=== PATIENT | male | born 1945 | race Caucasian/White ===

== ENCOUNTER 2023-12-13 06:34 | Inpatient (IN) | payer OTHER, SELFPAY ==
[2023-12-13] VITALS (18 sets, daily range): BP systolic 133–171; BP diastolic 75–101; PULSE 64–107; BMI 17.9; BMI 17.2
[2023-12-13 02:41] LABS: % Basophils 0.2 % (0-2); % Eosinophils 1.8 % (0-6); % Immature Granulocytes 0.6 % (0-0.5); % Lymphocytes 5.8 % (20.5-51.1); % Monocytes 3.3 % (1.7-9.3); % Neutrophils 88.3 % (42.2-75.2); Absolute Basophils 0.1 10^3/uL (0-0.2); Absolute Eosinophils 0.4 10^3/uL (0-0.7); Absolute Immature Granulocytes 0.1 10^3/uL (0-0.05); Absolute Lymphocytes 1.2 10^3/uL (1.2-3.4); Absolute Monocytes 0.7 10^3/uL (0.1-0.6); Absolute Neutrophils 18.5 10^3/uL (1.4-6.5); Hematocrit 33.4 % (39.0-52.0); Hemoglobin 11.5 g/dL (13.0-18.0); Mean Corp Hgb Conc. 34.4 g/dL (33.0-37.0); Mean Corpuscular Hgb 29.6 pg (27.0-31.0); Mean Corpuscular Volume 86.1 fL (80.0-94.0); Mean Platelet Volume 9.7 fL (7.4-10.4); Nucleated Red Blood Cells % 0 % (-); Platelet Count 295 10^3/uL (130-400); Red Blood Cell Count 3.88 10^6/uL (4.70-6.10); Red Cell Dist. Width 13.4 % (11.5-14.5); White Blood Cell Count 20.9 10^3/uL (4.8-10.8)
[2023-12-13 03:01] LABS: INR 1.12; PT 14.2 Sec (11.4-14.6)
--- NOTE | 2023-12-13 03:01 | ED.GENMED ---
History of Present Illness
General
Chief Complaint: Rectal Bleeding
Source: patient and spouse
Time Seen by Provider: 12/13/23 02:54
Travel History
Have you had any contact with someone who has COVID-19?: No
Do you have any symptoms of coronavirus? Fever > 100 degrees, chills, cough, shortness of breath, sore throat, loss of taste or smell, muscle aches, or headache?: No
History of Present Illness
History of Present Illness:
78-year-old male presents to the emergency room complaining of rectal bleeding. Patient states he was awoken from sleep with the urge to go the bathroom. He had some abdominal cramping. He passed a large amount of maroon stool. He has had a
total of 5 episodes such as this prompting his decision to come to the emergency room. He did feel a bit lightheaded. Patient takes a baby aspirin a couple times a week. He denies any other anticoagulants. Patient has had colonoscopies in the
past last one being about 10 years ago. He was told he had diverticulosis in the past.
Past History
Past History
ED Past Medical History: HTN, Hypothyroidism and Other (kidney stones)
ED Past Surgical History: None
Social History
Tobacco: Non-smoker
Personal:
Living: with family
Employment: Employed
Phy Exam
Physical Exam
Physical Exam:
General: Awake, Alert, Oriented X3. No acute distress.
Vitals: unremarkable
Head: Atraumatic
Eyes: Pupils equal, EOMI
Throat: Airway intact, no exudates
Neck: Trachea midline
Lungs: Clear and equal b/l
Heart: Regular rate, no murmurs
Abd: Soft, Nontender, No pulsatile mass
Rectal:
Neuro: Nonfocal
Skin: Warm, dry, no rash
Extremities: pulses equal b/l, no edema
Course
Orders/Labs/Results
Orders:
Orders
12/13/23 02:23
Cardiac Monitoring- Treatment ONCE
12/13/23 02:25
Complete Blood Count/With Diff Urgent
Comprehensive Metabolic Panel Urgent
PTT Urgent
Prothrombin Time Urgent
12/13/23 03:06
Type+Screen Urgent
12/13/23 03:16
CT Abd/pelvis W Iv Cont Urgent
Comment:
Reason For Exam: abd pain, gi bleeding
12/13/23 03:34
Diphenhydramine [Benadryl] 50 mg IV NOW STA
Hydrocortisone Sod Succinate [Solu-Cortef] 200 mg IV NOW STA
12/13/23 04:06
Code Status As Directed
Resuscitation Status: Full Code
Activity As Directed
Activity Level: With Assistance
Intake/ Output As Directed
Frequency: Per unit guidelines
Orthostatic Vital Signs As Directed
Orthostatic VS Frequency: Now
Comment: then every four hours for twenty-four hours
Pneumatic Compression Sleeves As Directed
Type: Knee high
Vital Signs As Directed
Frequency: Per unit guidelines
DX Deep Vein Thrombosis Video Routine
12/13/23 04:07
Consult Notification Routine
Specialty to Notify: Gastroenterology
GASTROINTESTINAL CONSULT Routine
Consulting Provider: Ann-Marie Grissom
Was physician already notified: No
Reason for consult: Acute colicky maroon stool hematochezia
12/13/23 04:15
0.9% Sodium Chloride 1000 ml [Nss] 1,000 ml IV 60 mls/hr
12/13/23 04:44
H&H Q6H
12/13/23 Breakfast
NPO
Allow oral meds: Yes
Allow clear liquids: Sips of Clears
NPO with Ice Chips: Yes
12/13/23 06:11
Basic Metabolic Panel IN AM
12/13/23 06:22
Admit/Transfer Patient As Directed
Co-Sign Provider:
Level of Care: Inpatient admission
Assign to:: Telemetry
Physician / Group: [email or web address]
Diagnosis: acute rectl bleed
Reason for Telemetry: Other
Other Reason for Telemetry: GIB
Date to Stop Telemetry: 12/15/23
Time to Stop Telemetry: 11:00
Reason for Hospitalization: acute rectal bleed
Expected length of stay greater than two midnights?: Yes
ELOS- Estimated Length of Stay in days: 3
I certify the patient meets the requirements for IP care: Yes
12/13/23 08:00
0.9% Sodium Chloride [Nss (Preservative Free)] 10 ml IV DAILY
Pantoprazole [Protonix IV] 40 mg IV DAILY
12/13/23 10:15
H&H Q6H
12/13/23 16:15
H&H Q6H
12/13/23 22:15
H&H Q6H
12/15/23 11:00
DC Protocol for Telemetry ONCE
Abnormal Lab Results
12/13/23 12/13/23
02:25 04:44
WBC 20.9 H 10^3/uL
(4.8-10.8)
RBC 3.88 L 10^6/uL
(4.70-6.10)
Hgb 11.5 L g/dL 12.1 L g/dL
(13.0-18.0) (13.0-18.0)
Hct 33.4 L % 35.3 L %
(39.0-52.0) (39.0-52.0)
Abs Immat Gran (auto) 0.1 H 10^3/uL
(0-0.05)
Absolute Neuts (auto) 18.5 H 10^3/uL
(1.4-6.5)
Absolute Monos (auto) 0.7 H 10^3/uL
(0.1-0.6)
Immature Gran % 0.6 H %
(0-0.5)
Neutrophils % 88.3 H %
(42.2-75.2)
Lymphocytes % 5.8 L %
(20.5-51.1)
BUN 23 H mg/dl
(9-20)
Glucose 161 H mg/dl
(70-99)
Total Protein 5.8 L g/dl
(6.3-8.2)
Albumin 2.9 L g/dl
(3.5-5.0)
Vital Signs
Initial and Last Documented VS:
Initial Vital Signs
Temp Pulse Resp BP Pulse Ox
97.6 F 82 20 160/99 98
12/13/23 01:33 12/13/23 01:33 12/13/23 01:33 12/13/23 01:33 12/13/23 01:33
Last Documented Vital Signs
Temp Pulse Resp BP Pulse Ox
97.6 F 75 20 144/89 95
12/13/23 01:33 12/13/23 05:45 12/13/23 05:45 12/13/23 05:00 12/13/23 05:45
MDM/Problems Addressed
Differential Diagnosis Includes:
Diverticular bleeding, hemorrhoidal bleeding, ischemic bowel
MDM/Problems Addressed:
Patient presents with several episodes of bright red blood per rectum. He does have some abdominal pain but does not appear to be as significant as I would expect for ischemic colitis. Patient's white count is elevated. He is hemodynamically
stable. Patient did not pass any bloody stool after arrival. But given his elevated white blood cell count I thought CT should be performed. Patient will be admitted to the hospital service for close monitoring of vital signs and hemoglobin.
Chronic conditions affecting care: HTN
*Pulse Oximetry
Patient hypoxic: no
*Critical Care Note
Total Time (30-74mins, 75-104mins- exclusive of procedures): Not Applicable
Patient Management
Escalation/DeEscalation of care consider admission/obs:
Given the potential significantly from a diverticular bleed patient will require hospitalization
ED Attending Note
-
Portions of this chart may have been created with voice recognition software.� Occasional wrong word or��sound alike� substitutions may have occurred due to the inherent limitations of voice recognition software.
Discharge Plan
Departure
Patient Disposition: Admit
Date of Disposition: 12/13/23
Time of Disposition: 03:21
Admit to: IMU
Presentation/result/management discussed w/ accepting MD/DO: Hospitalist
Condition: Fair
Discharge Problem:
Acute lower GI bleeding
Prescriptions:
No Action
lisinopril 10 MG tablet
10 mg PO DAILY
aspirin 81 MG tablet,delayed release (DR/EC)
81 mg PO MOFR
Fiber Plus
1 cap PO DAILY
Patient Comments:
OTC
zinc 50 MG tablet
50 mg PO DAILY
cholecalciferol (vitamin D3) 2,000 UNITS tablet
2,000 units PO DAILY
docosahexaenoic acid-vit C-lut 1 EACH capsule
1 ea PO MOFR
acetaminophen 325 MG tablet
650 mg PO Q4HPRN PRN (Reason: mild pain) Qty: 30 0RF
ibuprofen 200 MG tablet
400 - 600 mg PO Q6HPRN PRN (Reason: moderate pain) Qty: 30 0RF
Referrals:
Kayode Jean MD [Family Provider] -
Interventions
Interventions:
*Risk Screen - Suicide Last Done: 12/13/23 01:33
*General Assessment Last Done: 12/13/23 01:33
*Neglect/Abuse Screening Last Done: 12/13/23 01:33
ED- Fall Risk Assessment Last Done: 12/13/23 01:33
*ED COVID-19 Vaccine History Last Done: 12/13/23 01:33
WG-Fruffm-Xfyiytdcii Assessment Last Done: 12/13/23 03:52
ED- Cardiac Assessment Last Done: 12/13/23 03:52
ED- Pulmonary Assessment Last Done: 12/13/23 03:52
[2023-12-13 03:02] LABS: APTT 34.1 Sec (23.4-35.0)
[2023-12-13 03:14] LABS: ALT (SGPT) 12 U/L (0-50); AST (SGOT) 18 U/L (17-59); Albumin 2.9 g/dl (3.5-5.0); Alkaline Phosphatase 75 U/L (38-126); Blood Urea Nitrogen 23 mg/dl (9-20); Calcium 8.8 mg/dl (8.4-10.2); Carbon Dioxide 26 mmol/L (22-30); Chloride 105 mmol/L (98-107); Glucose 161 mg/dl (70-99); Sodium 140 mmol/L (135-145); Total Bilirubin 0.5 mg/dl (0.2-1.3); Total Protein 5.8 g/dl (6.3-8.2); eGFR > 60.00
[2023-12-13] MEDS: BENADRYL 50 MG IV (03:58)
[2023-12-13] MEDS: SOLU-CORTEF 200 MG IV (03:59)
--- NOTE | 2023-12-13 04:02 | HPS.HSE ---
Family Physician
-
Family Physician: Kayode Jean
Chief Complaint
-
Rectal bleed
History of Present Illness
78M HX Diverticulosis, HTN , hypothyroid pw acute rectal bleeding associated with colicky abdominal pain
Reports passage of large amount of maroon stool total of 5 episodes. On babay ASA.
POS lightheaded.
Not on anticoagulants.
Last colonoscopies about 10 years ago
Medical History
Past Medical History
Past Medical History: Reports HTN, Hypothyroidism and Other (diverticulosis )
Past Surgical History: Reports None
Social History
Tobacco: Non-smoker
Alcohol: None
Family History
Family History: Not pertinent
Allergies / Home Medications
Allergies reflects when Allergies were last updated in [employer].
Home Medications with original date entered in [employer]
Allergy/Medication List:
Allergies
Allergy/AdvReac Type Severity Reaction Status Date / Time
iodine Allergy Shortness Verified 12/13/23 01:33
of Breath
Sulfa (Sulfonamide Allergy Rash Verified 12/13/23 01:33
Antibiotics)
sulfamethoxazole Allergy Rash Verified 12/13/23 01:33
trimethoprim Allergy Rash Verified 12/13/23 01:33
IVP Dye Allergy Fainted Uncoded 12/13/23 01:33
Home Medications
lisinopril 10 mg tablet 10 mg PO DAILY 06/30/12
Fiber Plus 1 cap PO DAILY 05/02/14
aspirin 81 mg tablet,delayed release 81 mg PO MOFR 05/02/14
cholecalciferol (vitamin D3) 50 mcg (2,000 unit) tablet 2,000 units PO DAILY 12/18/20
docosahexaenoic acid-vitamin C-lutein 180 mg-15 mg-5 mg capsule 1 ea PO MOFR 12/18/20
zinc 50 mg tablet 50 mg PO DAILY 12/18/20
acetaminophen 325 mg tablet 650 mg PO Q4HPRN PRN mild pain #30 tabs 12/20/20
ibuprofen 200 mg tablet 400 - 600 mg PO Q6HPRN PRN moderate pain #30 tabs 12/20/20
Review of Systems
-
Constitutional: Reports No Symptoms
EENT: Reports No Symptoms
Respiratory: Reports No Symptoms
Cardiac: Reports No Symptoms
Abdomen/GI: Reports See HPI
: Reports No Symptoms
Musculoskeletal: Reports No Symptoms
Skin: Reports No Symptoms
Neurological: Reports No Symptoms
Endocrine: Reports No Symptoms
Hematologic/Lymphatic: Reports No Symptoms
Psych: Reports No Symptoms
Physical Exam
Vital Signs
Vital Signs
Temp Pulse Resp BP Pulse Ox
97.6 F 82 20 171/81 98
12/13/23 01:33 12/13/23 01:33 12/13/23 01:33 12/13/23 01:43 12/13/23 03:52
Physical Exam
General: Other (see below )
Laboratory Results
-
12/13/23 02:25
12/13/23 02:25
Laboratory Results
PT 14.2 Sec (11.4-14.6) 12/13/23 02:25
INR 1.12 12/13/23 02:25
APTT 34.1 Sec (23.4-35.0) 12/13/23 02:25
Total Bilirubin 0.5 mg/dl (0.2-1.3) 12/13/23 02:25
AST 18 U/L (17-59) 12/13/23 02:25
ALT 12 U/L (0-50) 12/13/23 02:25
Alkaline Phosphatase 75 U/L (38-126) 12/13/23 02:25
Data Reviewed
-
Diagnostic Radiology: Other
CT Scan: Other (pending )
Lab Data: Labs Reviewed by me
Impression/Plan
-
Reviewed VS: BP 170/80 HR 80
PE
Gen: No acute distress.
HEENT: unremarkable exam , anicteric , no pallor
Neck: supple , no JVD
Lungs: CTA
Cor: RRR S1 S2
Abdomen: oft, Nontender, No pulsatile mass
CLAY MINE CUTTING MACHINE OPERATOR: AAO3
MS: no edema
Psych: appropriate
Data
WCC 20.9
Hgb 11.5
INR 1.12
BUN 20
nl Cr
BG [address] AP w IV contrast
ASSESSMENT & PLAN
Acute colicky BRBPR LGIB Diff origin; Ischemic, Diverticular origin
- T & S
- Blood consented and sxcaneed at ER
- NPO and IVF
- H & H
- Pending CT AP w IV contrast
- Held ASA and NSAIDs
- GI consult
Essential HTN
- Held Lisinopril
DVT Px: SCD
Code: Full
IP TLM
[2023-12-13] MEDS: NSS 1000 IV ×2 (04:43→20:53)
[2023-12-13 04:54] LABS: Hematocrit 35.3 % (39.0-52.0); Hemoglobin 12.1 g/dL (13.0-18.0)
[2023-12-13 06:42] LABS: Blood Urea Nitrogen 22 mg/dl (9-20); Calcium 8.9 mg/dl (8.4-10.2); Carbon Dioxide 27 mmol/L (22-30); Chloride 106 mmol/L (98-107); Estimated Creatinine Clearance 65 ml/min; Glucose 118 mg/dl (70-99); Potassium 4.8 mmol/L (3.5-5.1); Sodium 140 mmol/L (135-145); eGFR > 60.00
--- NOTE | 2023-12-13 08:04 | W.PN.HOSP.TC ---
Today's Communication/Plan
-
Keep NPO until seen by GI.
Assessment / Plan
Assessment / Plan
78 year old man wih a HX of Diverticulosis, HTN , hypothyroid presents with acute� rectal bleeding associated with colicky abdominal pain.
On ASA, not on antioagulants.
1. Acute colicky BRBPR, LGIB� likely origin; H/H >09/08, Vitals stable.
- Blood consented and sxcaneed at ER
- Continue NPO and IVF until plan by GI
- H & H Q6
- Reiew results of Pending CT AP w IV contrast when available
- Hold ASA� and NSAIDs
- GI consult pending
2. Essential HTN, chronic
- Hold po Lisinopril for now
- Resume po bp control when taking PO again
- Hydralazine PRN if SBP > 180�
VCD for DVT
Full Code
Anticipated Discharge: 24 - 48 hours
Subjective/Interval History
-
Date of Service: December 13, 2023
Feels better. No abd pain, no further episodes of bleeding.
Objective Data
-
Labs:
Laboratory Results
12/13/23 12/13/23 12/13/23
02:25 04:44 06:11
WBC 20.9 H
Hgb 11.5 L 12.1 L
Hct 33.4 L 35.3 L
Plt Count 295
PT 14.2
INR 1.12
APTT 34.1
Sodium 140 140
Potassium 4.0 4.8
Chloride 105 106
Carbon Dioxide 26 27
BUN 23 H 22 H
Creatinine 0.9 0.7
Glucose 161 H 118 H
Calcium 8.8 8.9
Total Bilirubin 0.5
AST 18
ALT 12
Alkaline Phosphatase 75
12/13/23 12/13/23 12/13/23
10:15 16:15 22:15
WBC
Hgb Pending Pending Pending
Hct Pending Pending Pending
Plt Count
PT
INR
APTT
Sodium
Potassium
Chloride
Carbon Dioxide
BUN
Creatinine
Glucose
Calcium
Total Bilirubin
AST
ALT
Alkaline Phosphatase
Vital Signs:
Vital Signs
Temp Pulse Resp BP Pulse Ox
97.6 F 72 18 159/81 95
12/13/23 01:33 12/13/23 07:15 12/13/23 07:15 12/13/23 07:00 12/13/23 07:15
Review of Systems
-
History Source: Patient
All other systems: Reviewed and negative
Physical Exam
-
General: Well Developed, Well Nourished, No Apparent Distress, Comfortable and Conversant
HEENT: Normocephalic, Atraumatic, PERRLA, Nose Appears Normal and Ears Appear Normal
Respiratory: Clear to Auscultation
Cardiac: Regular Rhythm and S1/S2
GI: Soft, Nontender and Nondistended
Skin: Warm and Dry; Negative Rash or Ulcers
Neuro: Awake, Alert, Oriented and AO x 3
Psych: Calm
Data Reviewed
-
Labs: Labs Reviewed by me
--- NOTE | 2023-12-13 08:06 | CON.GI ---
Addendum entered and electronically signed by Ann-Marie Grissom MD 12/13/23 10:48:
I saw and examined the patient.
The MONOGRAM MACHINE OPERATOR's note was reviewed and I agree with the note.
Comment: This is a 78-year-old male who presented with symptoms of multiple episodes of diarrhea with rectal bleeding since yesterday associated with lower abdominal pain. Hemodynamically stable CT shows diverticulosis no evidence of diverticulitis
or colitis and hemoglobin 11.5. He has not had any further episodes since last night and abdominal pain also seems to have improved. Most likely etiology is infectious colitis versus ischemic colitis or diverticular bleed. He did have an elevated
white count on admission but will hold off on antibiotics for now since symptoms are improving, will start him on clear liquids.
Original Note:
Consultation
-
Date/Time Consultation Requested: 12/13/23406
Date/Time Consultation Performed: 12/13/23824
Requesting Provider: Jose Snider MD
Performing Provider: Dr. Grissom / Isabella Farris PA-C
Reason for Consultation: rectal bleeding
Medical History
Chief Complaint / HPI
Chief Complaint: rectal bleeding
History of Present Illness:
This is an 78 year old male with a past medical history of HTN, hypothyroidism who presents for rectal bleeding which started yesterday with associated cramping lower abdominal pain. He states he had diarrhea, described as 'loose' bowel movements
with maroon colored blood. He had approximately 5-6 episodes of rectal bleeding; last one around midnight. No further bleeding or BM since coming to the ER. No associated fever, chills, nausea or vomiting. He denies any sick contacts. No new foods
or possibly spoiled foods. He did eat pork chops yesterday. He takes a baby aspirin daily and admits to occasional NSAID use. No prior history of rectal bleeding. His last colonoscopy was in 2011 and showed diverticulosis, internal and external
hemorrhoids, as well as a 5mm hyperplastic sigmoid polyp. Initial labs in the ER show stable Hgb of 11.5 and leukocytosis (WBC 20.9). CT abd/pelvis shows extensive diverticulosis, most prominent in the sigmoid colon. No family history of IBD or
colon cancer. Pain resolved now.
Past Medical History
Past Medical History: HTN and Hypothyroidism
Past Surgical History: None
Social History
Tobacco: Non-Smoker
Alcohol: Occasional (3 beers/week)
Drug: None
Personal:
Living: With Family
Family History
Family History: Other (no family history of GI malignancies or inflammatory bowel disease)
Allergies / Home Medications
Allergy/AdvReac Type Severity Reaction Status Date / Time
iodine Allergy Shortness Verified 12/13/23 01:33
of Breath
Sulfa (Sulfonamide Allergy Rash Verified 12/13/23 01:33
Antibiotics)
sulfamethoxazole Allergy Rash Verified 12/13/23 01:33
trimethoprim Allergy Rash Verified 12/13/23 01:33
IVP Dye Allergy Fainted Uncoded 12/13/23 01:33
Medication Instructions Recorded
lisinopril 10 mg tablet 10 mg PO DAILY 06/30/12
Fiber Plus 1 cap PO DAILY 05/02/14
aspirin 81 mg tablet,delayed 81 mg PO MOFR 05/02/14
release
cholecalciferol (vitamin D3) 50 2,000 units PO DAILY 12/18/20
mcg (2,000 unit) tablet
docosahexaenoic acid-vitamin 1 ea PO MOFR 12/18/20
C-lutein 180 mg-15 mg-5 mg capsule
zinc 50 mg tablet 50 mg PO DAILY 12/18/20
acetaminophen 325 mg tablet 650 mg PO Q4HPRN PRN mild pain #30 12/20/20
tabs
ibuprofen 200 mg tablet 400 - 600 mg PO Q6HPRN PRN 12/20/20
moderate pain #30 tabs
Review of Systems
-
History Source: Patient
All other systems: A 12 pt ROS was Negative except as stated above in HPI
Vital Signs
Temp Pulse Resp BP Pulse Ox
97.6 F 72 18 159/81 95
12/13/23 01:33 12/13/23 07:15 12/13/23 07:15 12/13/23 07:00 12/13/23 07:15
Physical Exam
Exam
General: Well Developed, Well Nourished and No Apparent Distress
Respiratory: Clear
Cardiac: Regular Rhythm
GI: Soft, Non Tender, Non Distended and Normal Bowel Sounds
Rectal: Other (no external hemorrhoids, no palpable masses or tenderness on VISHNU, scant amount of BROWN stool, heme POSITIVE)
Skin: Warm
Neuro: AO x 3
Psych: Calm
Results
WBC 20.9 10^3/uL (4.8-10.8) H 12/13/23 02:25
Hgb 12.1 g/dL (13.0-18.0) L 12/13/23 04:44
Hct 35.3 % (39.0-52.0) L 12/13/23 04:44
MCV 86.1 fL (80.0-94.0) 12/13/23 02:25
Plt Count 295 10^3/uL (130-400) 12/13/23 02:25
Absolute Neuts (auto) 18.5 10^3/uL (1.4-6.5) H 12/13/23 02:25
PT 14.2 Sec (11.4-14.6) 12/13/23 02:25
INR 1.12 12/13/23 02:25
APTT 34.1 Sec (23.4-35.0) 12/13/23 02:25
Sodium 140 mmol/L (135-145) 12/13/23 06:11
Potassium 4.8 mmol/L (3.5-5.1) 12/13/23 06:11
Chloride 106 mmol/L (98-107) 12/13/23 06:11
Carbon Dioxide 27 mmol/L (22-30) 12/13/23 06:11
BUN 22 mg/dl (9-20) H 12/13/23 06:11
Creatinine 0.7 mg/dL (0.7-1.3) 12/13/23 06:11
Calcium 8.9 mg/dl (8.4-10.2) 12/13/23 06:11
Total Bilirubin 0.5 mg/dl (0.2-1.3) 12/13/23 02:25
AST 18 U/L (17-59) 12/13/23 02:25
ALT 12 U/L (0-50) 12/13/23 02:25
Alkaline Phosphatase 75 U/L (38-126) 12/13/23 02:25
Diagnostic Image Results:
CT Abdomen/Pelvis w IV contrast:
Extensive colonic diverticulosis, most prominent sigmoid. No intestinal obstruction or free air.
Evaluation for active colonic bleeding markedly limited without angiographic technique.
Bilateral simple renal cysts. No evidence of obstructive uropathy bilaterally.
Enlarged prostate.
Prior GI Procedures:
EGD:
Colonoscopy:
01/15/2012, Dr. Carreon:
Impression:� � � � � - Non-thrombosed external hemorrhoids.
�� � � � � � � � � � - One 5 mm polyp in the sigmoid colon. Resected and
�� � � � � � � � � � retrieved.
�� � � � � � � � � � - Diverticulosis in the sigmoid colon, in the descending
�� � � � � � � � � � colon, in the transverse colon and in the ascending
�� � � � � � � � � � colon.
�� � � � � � � � � � - Internal hemorrhoids.
Assessment / Plan
-
78 year old male with HTN, hypothyroidism who presents for 5-6 episodes of rectal bleeding with cramping lower abdominal pain and diarrhea, since yesteday. No fever, chills, nausea or vomiting. No sick contacts. No new foods or possibly spoiled
foods. He did eat pork chops yesterday. He takes a baby aspirin daily and admits to occasional NSAID use. No prior history of rectal bleeding. Colonoscopy in 2011 showed diverticulosis, internal and external hemorrhoids, and small hyperplastic
polyp. ER labs: Hgb 11.5 and leukocytosis (WBC 20.9). CT abd/pelvis shows extensive diverticulosis, most prominent in the sigmoid colon. No family history of IBD or colon cancer. Pain has now resolved with no further bleeding or BM since coming to
the hospital.
IMPRESSION / PLAN:
Rectal Bleeding, etiology unknown - possibilities include diverticular bleed, AVM, infectious or ischemic colitis
-5-6 episodes of rectal bleeding (maroon-colored, loose stools); no active bleeding now
-Hgb 11.5 initially in ER, now 12.1
-continue to trend Hgb to ensure stability
-CT without evidence of colitis/diverticulitis but limited due to lack of oral contrast
-monitor for recurrence of bleeding
-if diarrhea recurs, stool studies
-hold NSAIDs
We will follow.
-
-
Thank you for consultation and allowing me to participate in the patient's care. Please call the [facility] physician during the after hours with any questions or concerns.
[2023-12-13] MEDS: NSS (PRESERVATIVE FREE) 10 ML IV (08:26)
[2023-12-13] MEDS: PROTONIX IV 40 MG IV (08:26)
--- NOTE | 2023-12-13 08:51 | CM ---
MEt with patient in ER. He is being admitted to . Aly has a rectal bleed. He lives with in 2 level home. From lower level up 12 steps to living areas, 12 more steps to bedroom and full bathroom. HE does not own any DME.
PCP Dr. Kayode Baez
Pharmacy: [facility]
Plan;home when stable.
--- NOTE | 2023-12-13 10:00 | PTCARENOTE ---
Received pt from ED. Pt ambulated from stretcher into room with assistance, no c/o pain or lightheadedness. Pt VSS 99% on RA. At rest pt sinus daniella 40s-50s with ambulation Pt ST with BBBc and frequent PVCs, however alarming as MD Nya showed
rhythm strips, Continue to monitor on tele. Pt oriented to room, call ackerman within reach, instructed to ring for assistance, verbalized understanding, plan of care ongoing.
[2023-12-13 10:23] LABS: Hematocrit 31.7 % (39.0-52.0); Hemoglobin 11.2 g/dL (13.0-18.0)
[2023-12-13 16:37] LABS: Hematocrit 28.6 % (39.0-52.0); Hemoglobin 10.4 g/dL (13.0-18.0)
[2023-12-13 23:25] LABS: Hematocrit 26.8 % (39.0-52.0); Hemoglobin 9.3 g/dL (13.0-18.0)
[2023-12-14 03:29] VITALS: BP 141/89; BP 143/69; BP 144/89; PULSE 60; PULSE 81; PULSE 89
[2023-12-14 07:28] LABS: Hematocrit 29.2 % (39.0-52.0); Hemoglobin 9.8 g/dL (13.0-18.0); Mean Corp Hgb Conc. 33.6 g/dL (33.0-37.0); Mean Corpuscular Hgb 29.3 pg (27.0-31.0); Mean Corpuscular Volume 87.4 fL (80.0-94.0); Mean Platelet Volume 10.1 fL (7.4-10.4); Platelet Count 255 10^3/uL (130-400); Red Blood Cell Count 3.34 10^6/uL (4.70-6.10); Red Cell Dist. Width 13.3 % (11.5-14.5); White Blood Cell Count 9.5 10^3/uL (4.8-10.8)
[2023-12-14] MEDS: PROTONIX IV 40 MG IV (07:47)
[2023-12-14] MEDS: NSS (PRESERVATIVE FREE) 10 ML IV (07:47)
[2023-12-14 07:50] VITALS: BP 152/80
[2023-12-14 08:08] LABS: Blood Urea Nitrogen 18 mg/dl (9-20); Calcium 8.5 mg/dl (8.4-10.2); Carbon Dioxide 25 mmol/L (22-30); Chloride 107 mmol/L (98-107); Estimated Creatinine Clearance 63 ml/min; Glucose 96 mg/dl (70-99); Potassium 4.2 mmol/L (3.5-5.1); Sodium 138 mmol/L (135-145); eGFR > 60.00
--- NOTE | 2023-12-14 08:49 | W.PN.GI.CBS2 ---
Today's Communication / Plan
-
monitor Hb
LRD
Assessment / Plan
-
78 year old male with HTN, hypothyroidism who presents for 5-6 episodes of rectal bleeding with cramping lower abdominal pain and diarrhea, since yesteday. No fever, chills, nausea or vomiting. No sick contacts. No new foods or possibly spoiled
foods. He did eat pork chops yesterday. He takes a baby aspirin daily and admits to occasional NSAID use. No prior history of rectal bleeding. Colonoscopy in 2012 showed diverticulosis, internal and external hemorrhoids, and small hyperplastic
polyp. ER labs: Hgb 11.5 and leukocytosis (WBC 20.9). CT abd/pelvis shows extensive diverticulosis, most prominent in the sigmoid colon. No family history of IBD or colon cancer. Pain has now resolved with no further bleeding or BM since coming to
the hospital.
IMPRESSION / PLAN:
This is a 78-year-old male who presented with symptoms of multiple episodes of diarrhea with rectal bleeding associated with lower abdominal pain.� Hemodynamically stable CT shows diverticulosis no evidence of diverticulitis or colitis and
hemoglobin dropped from 11.5 tp 9.8 but no further bleeding.�Most likely etiology diverticular bleed.� He did have an elevated white count on admission now resolved (20.9 to 9.5) will hold off on antibiotics for now since symptoms are improving,
will adv diet for lunch to LRD and if no further bleeding OK to DC
-monitor for recurrence of bleeding
-if diarrhea recurs, stool studies
-hold NSAIDs
Subjective
Subjective
Date of Service: December 14, 2023
No further bleeding hemoglobin did drop from 11.5 on admission to 9.8. He also has no abdominal pain currently, no nausea or vomiting, CT was negative for colitis or diverticulitis
Objective
Data Reviewed
Laboratory Data:
Laboratory Results
12/14/23 07:12
12/14/23 07:12
Laboratory Results
PT 14.2 Sec (11.4-14.6) 12/13/23 02:25
INR 1.12 12/13/23 02:25
APTT 34.1 Sec (23.4-35.0) 12/13/23 02:25
Magnesium 2.0 mg/dl (1.6-2.3) 12/14/23 07:12
Total Bilirubin 0.5 mg/dl (0.2-1.3) 12/13/23 02:25
AST 18 U/L (17-59) 12/13/23 02:25
ALT 12 U/L (0-50) 12/13/23 02:25
Alkaline Phosphatase 75 U/L (38-126) 12/13/23 02:25
Vital Signs and I&O:
Vital Signs
Temp Pulse Resp BP Pulse Ox
98.2 F 56 18 152/80 98
12/14/23 07:50 12/14/23 07:50 12/14/23 07:50 12/14/23 07:50 12/14/23 07:50
I&O
12/13/23 12/14/23 12/15/23
06:59 06:59 06:59
Intake Total 1879
Balance 1879
12/13/23 PROCEDURES: CT Abd/pelvis W Iv Cont IMPRESSION:
Extensive colonic diverticulosis, most prominent sigmoid. No intestinal obstruction or free air.
Evaluation for active colonic bleeding markedly limited without angiographic technique.
Bilateral simple renal cysts. No evidence of obstructive uropathy bilaterally.
Enlarged prostate.
Physical Exam
Physical Exam
Cardiology: Normal Sinus Rhythm
Pulmonary: Clear
GI: Soft, Non Distended, Non Tender and Normal Bowel Sounds
--- NOTE | 2023-12-14 09:13 | W.PN.HOSP.TC ---
Today's Communication/Plan
-
see bold
Assessment / Plan
Assessment / Plan
78 year old man wih a HX of Diverticulosis, HTN , hypothyroid presents with acute� rectal bleeding associated with colicky abdominal pain.
On ASA, not on antioagulants.
Gen: NAD, AAOx3.
Eyes: EOMI, PERRLA, no scleral icterus.
Neck: supple.
CV: RRR, +S1/S2, no m/r/g.
Resp: CTAB, no rales, wheezes, or rhonchi.
Abd: +BS, soft, NT, ND
Skin: No rashes.
Neuro: CN 2-12 intact, non-focal.
Psych: Normal mood and affect.
CT A/P: Extensive colonic diverticulosis, most prominent sigmoid. No intestinal obstruction or free air. Evaluation for active colonic bleeding markedly limited without angiographic technique. Bilateral simple renal cysts. No evidence of obstructive
uropathy bilaterally. Enlarged prostate.
Acute blood loss anemia/BRBPR/LGIB due to acute diverticular bleed:
-cont to trend Hb, currently stable
-advanced to LR diet
-GI following
Essential HTN: restart home lisinopril
NSVT, 11 beats:
-Echo
-likely cardiology c/s tomorrow
FULL/SCDs
Anticipated Discharge: Within 24 hours
Subjective/Interval History
-
Date of Service: December 14, 2023
No further hematochezia or abdominal pain
Objective Data
-
Labs:
Laboratory Results
12/13/23 12/14/23
23:03 07:12
WBC 9.5
Hgb 9.3 L 9.8 L
Hct 26.8 L 29.2 L
Plt Count 255
Sodium 138
Potassium 4.2
Chloride 107
Carbon Dioxide 25
BUN 18
Creatinine 0.7
Glucose 96
Calcium 8.5
Vital Signs:
Vital Signs
Temp Pulse Resp BP Pulse Ox
98.2 F 56 18 152/80 98
12/14/23 07:50 12/14/23 07:50 12/14/23 07:50 12/14/23 07:50 12/14/23 07:50
I&O
12/13/23 12/14/23 12/15/23
06:59 06:59 06:59
Intake Total 1879
Balance 1879
[2023-12-14] MEDS: ZESTRIL 10 MG PO (10:04)
[2023-12-14 11:51] VITALS: BP 151/79
[2023-12-14] MEDS: NSS 1000 IV (12:40)
[2023-12-14 15:47] VITALS: BP 164/80; BP 165/79; BP 181/96; PULSE 60; PULSE 65; PULSE 66
--- NOTE | 2023-12-14 16:36 | PTCARENOTE ---
Pt had a small soft maroon bowel movement, no c/o abd cramping or discomfort. VSS. MD and GI made aware, repeat H&H ordered, hemoglobin stable. Plan of care ongoing
[2023-12-14 18:54] VITALS: BP 149/70
[2023-12-14 23:45] VITALS: BP 161/76
[2023-12-15 04:00] VITALS: BP 156/83
[2023-12-15] MEDS: NSS 1000 IV (04:43)
[2023-12-15 07:17] LABS: Hematocrit 28.6 % (39.0-52.0); Hemoglobin 9.8 g/dL (13.0-18.0); Mean Corp Hgb Conc. 34.3 g/dL (33.0-37.0); Mean Corpuscular Hgb 29.1 pg (27.0-31.0); Mean Corpuscular Volume 84.9 fL (80.0-94.0); Mean Platelet Volume 9.8 fL (7.4-10.4); Platelet Count 255 10^3/uL (130-400); Red Blood Cell Count 3.37 10^6/uL (4.70-6.10); Red Cell Dist. Width 13.2 % (11.5-14.5); White Blood Cell Count 7.5 10^3/uL (4.8-10.8)
[2023-12-15 07:48] LABS: Blood Urea Nitrogen 17 mg/dl (9-20); Calcium 8.1 mg/dl (8.4-10.2); Carbon Dioxide 27 mmol/L (22-30); Chloride 109 mmol/L (98-107); Estimated Creatinine Clearance 55 ml/min; Glucose 93 mg/dl (70-99); Potassium 4.1 mmol/L (3.5-5.1); Sodium 138 mmol/L (135-145); eGFR > 60.00
[2023-12-15 08:19] VITALS: BP 146/88
[2023-12-15] MEDS: ZESTRIL 10 MG PO (08:22)
[2023-12-15] MEDS: NSS (PRESERVATIVE FREE) 10 ML IV (08:22)
[2023-12-15] MEDS: PROTONIX IV 40 MG IV (08:22)
[2023-12-15] MEDS: FLUSH (NSS) 1 FLUSH IV (08:23)
--- NOTE | 2023-12-15 09:37 | W.PN.HOSP.TC ---
Addendum entered and electronically signed by Chris Calero MD 12/15/23 12:33:
.
Addendum entered and electronically signed by Chris Calero MD 12/15/23 12:20:
Case discussed with cardiology. Preliminary echo results look good and the cardiology team has cleared the patient for discharge. They report there is no need for beta-danisha at this time.
Total time spent on d/c = 35 min. This included today's physical exam, progress note, review of laboratory and diagnostic data, preparation of discharge documents and prescriptions, and discussions about the pt's hospital course and discharge plan
with the patient and other quality engineer medical device involved in the patient's care.
Original Note:
Today's Communication/Plan
-
see bold
Assessment / Plan
Assessment / Plan
78 year old man wih a HX of Diverticulosis, HTN , hypothyroid presents with acute� rectal bleeding associated with colicky abdominal pain.
On ASA, not on antioagulants.
Gen: NAD, AAOx3.
Eyes: EOMI, PERRLA, no scleral icterus.
Neck: supple.
CV: remains RRR, +S1/S2, no m/r/g.
Resp: remains CTAB, no rales, wheezes, or rhonchi.
Abd: remains +BS, soft, NT, ND
Skin: No rashes.
Neuro: CN 2-12 intact, non-focal.
Psych: Normal mood and affect.
CT A/P: Extensive colonic diverticulosis, most prominent sigmoid. No intestinal obstruction or free air. Evaluation for active colonic bleeding markedly limited without angiographic technique. Bilateral simple renal cysts. No evidence of obstructive
uropathy bilaterally. Enlarged prostate.
Acute blood loss anemia/BRBPR/LGIB due to acute diverticular bleed:
-cont to trend Hb, currently stable
-advanced to LR diet
-GI following
Essential HTN: cont lisinopril
NSVT, 11 beats:
-check Echo
-c/s cardiology
FULL/SCDs
Anticipated Discharge: Within 24 hours
Subjective/Interval History
-
Date of Service: December 15, 2023
BM yesterday was black with scant BRB. Denies CP/SOB/abd pain.
Objective Data
-
Labs:
Laboratory Results
12/15/23
06:59
WBC 7.5
Hgb 9.8 L
Hct 28.6 L
Plt Count 255
Sodium 138
Potassium 4.1
Chloride 109 H
Carbon Dioxide 27
BUN 17
Creatinine 0.8
Glucose 93
Calcium 8.1 L
Vital Signs:
Vital Signs
Temp Pulse Resp BP Pulse Ox
97.6 F 64 17 146/88 98
12/15/23 08:19 12/15/23 08:22 12/15/23 08:19 12/15/23 08:22 12/15/23 08:19
I&O
12/14/23 12/15/23 12/16/23
06:59 06:59 06:59
Intake Total 1879 1730 / 1730
Balance 1879 1730 / 1730
--- NOTE | 2023-12-15 10:19 | CM ---
Patient seen bedside, reports he is feeling better and denies any needs upon discharge. 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 CM will continue to follow for discharge planning needs.
Plan; home no needs anticipated.
--- NOTE | 2023-12-15 11:07 | CON.CAR ---
Addendum entered and electronically signed by Byron Guajardo MD 12/15/23 13:50:
I saw and examined the patient.
The QUARRYING SPECIALIST or PA's note was reviewed and I agree with the note.
Comment: General: Well developed, well nourished in NAD.
Neck: Supple, no JVD, HJR, carotids +2 B/L, no bruits bilaterally.
Heart: Non displaced PMI, RRR, no murmurs, No S3, S4, no rubs.
Lungs: Clear to auscultation bilaterally, no wheeze, rhonchi, rubs bilaterally,
normal expiratory phase.
Abdomen: Normal bowel sounds, soft, non-tender, non-distended.
Extremities: No clubbing, cyanosis or edema bilaterally.
Neuro: Grossly nonfocal, awake, alert and oriented x3.
Noel has a history of hypertension. He presented with abdominal pain and GI bleed. Cardiology is consulted for 12 beat run of nonsustained V. tach during sleep that was asymptomatic. He denies chest pain shortness of breath or palpitations.
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
Pulmonary echocardiogram revealed normal ejection fraction. No further cardiac workup is needed. Stable cardiology status for discharge. Discussed with patient and primary service.
Addendum entered and electronically signed by Oksana Killian PA-C 12/15/23 12:06:
updated
Original Note:
Consultation
Consultation Request
Date/Time Consultation Requested: 12/15/2023
Date/Time Consultation Performed: 12/15/2023
Requesting Provider: Dr. Calero
Performing Provider: Oksana Killian PA-C for Dr. Guajardo
Reason for Consultation: NSVT
Medical History
-
History of Present Illness:
Patient is an 78-year-old male with past medical history significant for hypertension and hernia repair who presents to emergency department 12/13/2023 with complaints of abdominal cramping/pain followed by 5-6 episodes of maroon stool associated with
intermittent dizziness prompting him to come to the emergency department. Hemoglobin noted to be 11.5 with elevated white count 20.9. Hemoglobin did drop to 9.3. CT abd/pelvis shows extensive diverticulosis, most prominent in the sigmoid colon.
Patient was noted to have a 12 beat run of NSVT during sleep and was asymptomatic on telemetry 12/13/2023. This prompted cardiology consult.
Patient reports he has no cardiac history. 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 He denies having palpitations syncope or near
syncope.
PMH:
Hypertension
diverticulosis
kidney stones�
Right inguinal hernia repair 2020
Past Medical History
Past Medical History: Other (See HPI)
Past Surgical History: Other (Laparoscopic right inguinal hernia repair 12/2020)
Social History
Tobacco: Non-Smoker
Alcohol: Occasional (beer)
Drug: None
Personal:
Living: With Family
Employment: Employed (works construction)
Family History
Family History: Hypertension
Allergies / Home Medications
Allergy/AdvReac Type Severity Reaction Status Date / Time
iodine Allergy Shortness Verified 12/13/23 01:33
of Breath
Sulfa (Sulfonamide Allergy Rash Verified 12/13/23 01:33
Antibiotics)
sulfamethoxazole Allergy Rash Verified 12/13/23 01:33
trimethoprim Allergy Rash Verified 12/13/23 01:33
IVP Dye Allergy Fainted Uncoded 12/13/23 01:33
Medication Instructions Recorded Confirmed Type
lisinopril 10 mg tablet 10 mg PO DAILY Blood Pressure 06/30/12 12/14/23 History
Fiber Plus 1 cap PO DAILY PRN constipation 05/02/14 12/14/23 History
aspirin 81 mg tablet,delayed 81 mg PO MOFR Blood Clot 05/02/14 12/14/23 History
release Prevention/Tx
cholecalciferol (vitamin D3) 50 2,000 units PO DAILY Supplement 12/18/20 12/14/23 History
mcg (2,000 unit) tablet
docosahexaenoic acid-vitamin 1 ea PO QMWF Stroke 12/18/20 12/14/23 History
C-lutein 180 mg-15 mg-5 mg capsule
zinc 50 mg tablet 50 mg PO DAILY Supplement 12/18/20 12/14/23 History
acetaminophen 325 mg tablet 650 mg PO Q4HPRN PRN mild pain #30 12/20/20 12/14/23 Rx
tabs
ibuprofen 200 mg tablet 400 - 600 mg PO Q6HPRN PRN 12/20/20 12/14/23 Rx
moderate pain #30 tabs
Review of Systems
-
History Source: Patient
All other systems: Negative unless noted
Physical Exam
Vital Signs
Temp Pulse Resp BP Pulse Ox
97.6 F 64 17 146/88 98
12/15/23 08:19 12/15/23 08:22 12/15/23 08:19 12/15/23 08:22 12/15/23 08:19
GEN: No distress, awake, Ox3, sitting in bed
HEENT: supple, anicteric, mmm
LUNGS: CTA, no wheezes/rales
CV: Reg, S1/S2, No murmur, rub or gallops
ABD: soft, BS+, NT/ND
EXT: No edema. clubbing or cyanosis
NEURO: Gross non-focal
SKIN: No rash, warm, dry, pink
Lab Results
12/15/23 06:59
12/15/23 06:59
Impression / Plan
-
PCP: Dr. Kayode Jean
Grain Loader: None prior to admission
Impression:
Presented 12/13/2023 with abdominal pain and bloody stool
Lower GI bleed
NSVT, 12 beats asymptomatic during sleep on 12/13/2022 noted on telemetry
Hypertension
diverticulosis
kidney stones�
Right inguinal hernia repair 2020
Echo 12/15/2023: pending
Plan:
Patient is an 78-year-old male with past medical history significant for hypertension and hernia repair who presents to emergency department 12/13/2023 with complaints of abdominal cramping/pain followed by 5-6 episodes of maroon stool associated with
intermittent dizziness prompting him to come to the emergency department. Hemoglobin noted to be 11.5 with elevated white count 20.9. Hemoglobin did drop to 9.3. CT abd/pelvis shows extensive diverticulosis, most prominent in the sigmoid colon.
Patient was noted to have a 12 beat run of NSVT during sleep and was asymptomatic on telemetry 12/13/2023. This prompted cardiology consult.
Patient reports he has no cardiac history. 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 He denies having palpitations syncope or near
syncope.
-Presented 12/13/2023 with abdominal pain associated with bloody stool x 5 and intermittent dizziness. Both have resolved
-Acute lower GI bleed, resolved. Initial hemoglobin 11.5, dropped to 9.3. Currently 9.8. GI following.
-Patient was taking aspirin 81 mg prior to admission. Currently on hold. No cardiac indication for aspirin.
-Patient noted to have 12 beats of NSVT on telemetry overnight during sleep. He was asymptomatic. No prior cardiac history or history of arrhythmia or syncope. No further arrhythmias noted on telemetry following initial event.
-Monitor electrolytes which appear to be stable keep K greater than 4, magnesium greater than 2.
-Check echocardiogram
-Consider adding low-dose beta-danisha
Data Reviewed
-
EKG: Report Reviewed by me, Discussed with Physician and Discussed with Patient
Labs: Labs Reviewed by me, Discussed with Physician and Discussed with Patient
Old Records: Reviewed
--- NOTE | 2023-12-15 11:16 | W.PN.UPDATE ---
Update Note
Progress Note Update
Came to see patient he is down to get ECHO for NSVT and cardiology consulted, d/w his nurse no further bleeding overnight and HB stable, continue LRD and monitor hb, will s/o and will be available as needed.
[2023-12-15 12:00] VITALS: BP 192/100
[2023-12-15 12:25] VITALS: BP 163/86
--- NOTE | 2023-12-15 12:27 | W.DCSUMMARY ---
Discharge Summary
Discharge Data
Date of Admission: 12/13/23
Date of Discharge: 12/15/23
-
Pending Results: Yes
Additional Pending Results:
Official Echo read
Hospital Course
Primary diagnoses:
Acute blood loss anemia due to lower GI bleed due to acute diverticular bleed
Nonsustained ventricular tachycardia
Secondary diagnoses:
Essential hypertension
Consultants:
Gastroenterology
Cardiology
Imaging:
CT A/P: Extensive colonic diverticulosis, most prominent sigmoid. No intestinal obstruction or free air. Evaluation for active colonic bleeding markedly limited without angiographic technique. Bilateral simple renal cysts. No evidence of obstructive
uropathy bilaterally. Enlarged prostate.
Hospital course: 78-year-old male who initially presented with chief complaint of rectal bleeding as outlined in the H&P done on admission. Imaging above. Patient was made n.p.o. and supported with IV fluids. GI was consulted. Initial hemoglobin
was 11.5. Patient's hemoglobin did drop but was stable at 9.8 at time of discharge. His his GI bleed was likely lower GI bleed due to acute diverticular bleed which resolved on its own. Patient also was noted to have nonsustained ventricular
tachycardia. He was seen in consultation by cardiology. He did have an echocardiogram and, as per cardiology, the preliminary results looks good (official read is pending at this time). Cardiology cleared the patient for discharge. They reported
he did not need to be placed on beta-danisha.
Discharge Plan
-
Patient Disposition: Home (Routine Discharge)
Discharge Diagnosis/Procedures: Acute blood loss anemia due to lower GI bleed due to acute diverticular bleed, nonsustained ventricular tachycardia
Condition: Good
Diet: Low Residue
Activity: As tolerated
Driving Restrictions: As prior to admission
Blood Work: CBC and BMP in 1 week
Referrals:
Kayode Jean MD [Family Provider] - in 4 days
Prescriptions:
Continued
lisinopril 10 MG tablet
10 mg PO DAILY
aspirin 81 MG tablet,delayed release (DR/EC)
81 mg PO MOFR
Fiber Plus
1 cap PO DAILY PRN (Reason: constipation )
Patient Comments:
OTC
zinc 50 MG tablet
50 mg PO DAILY
cholecalciferol (vitamin D3) 2,000 UNITS tablet
2,000 units PO DAILY
docosahexaenoic acid-vit C-lut 1 EACH capsule
1 ea PO QMWF
acetaminophen 325 MG tablet
650 mg PO Q4HPRN PRN (Reason: mild pain) Qty: 30 0RF
Discontinued
ibuprofen 200 MG tablet
400 - 600 mg PO Q6HPRN PRN (Reason: moderate pain) Qty: 30 0RF
Discharge Orders:
Discharge Patient (As Directed); Ordered 12/15/23
Ordered By: Chris Calero
== END 2023-12-15 13:19 | disposition home or self-care (01) | DRG 378 ==
LOC: 4 EAST ACU 06:34
PROVIDERS: Emergency Medicine; Internal Medicine; ADMITTING PHYSICIAN Internal Medicine; ATTENDING PHYSICIAN Internal Medicine; CONSULT PHYSICIAN Internal Medicine Gastroenterology; CONSULT PHYSICIAN Internal Medicine Interventional Cardiology; EMERGENCY PHYSICIAN Emergency Medicine; FAMILY PHYSICIAN Family Medicine
DX: K57.31 Diverticulosis of large intestine without perforation or abscess with bleeding (principal); D62 Acute posthemorrhagic anemia; I47.20 Ventricular tachycardia, unspecified; I10 Essential (primary) hypertension; N28.1 Cyst of kidney, acquired; N40.0 Benign prostatic hyperplasia without lower urinary tract symptoms; E03.9 Hypothyroidism, unspecified; Z79.82 Long term (current) use of aspirin
CPT/HCPCS: 74177; 80048; 80053; 83735; 85014; 85018; 85025; 85027; 85610; 85730; 86850; 86900; 86901; 93306; 96361; 96374; 96375; 99285; Q9967

== ENCOUNTER 2023-12-24 23:48 | Inpatient (IN) | payer OTHER, SELFPAY ==
[2023-12-24 18:27] VITALS: BP 180/97
[2023-12-24 18:50] VITALS: BMI 18.9
[2023-12-24 18:51] LABS: % Basophils 0.7 % (0-2); % Eosinophils 3.3 % (0-6); % Immature Granulocytes 0.4 % (0-0.5); % Lymphocytes 14.5 % (20.5-51.1); % Monocytes 5.1 % (1.7-9.3); Absolute Basophils 0.1 10^3/uL (0-0.2); Absolute Eosinophils 0.3 10^3/uL (0-0.7); Absolute Lymphocytes 1.3 10^3/uL (1.2-3.4); Absolute Monocytes 0.5 10^3/uL (0.1-0.6); Absolute Neutrophils 6.9 10^3/uL (1.4-6.5); Hematocrit 31.6 % (39.0-52.0); Hemoglobin 10.7 g/dL (13.0-18.0); Mean Corp Hgb Conc. 33.9 g/dL (33.0-37.0); Mean Corpuscular Hgb 29.3 pg (27.0-31.0); Mean Corpuscular Volume 86.6 fL (80.0-94.0); Mean Platelet Volume 9.5 fL (7.4-10.4); Nucleated Red Blood Cells % 0 % (-); Platelet Count 307 10^3/uL (130-400); Red Blood Cell Count 3.65 10^6/uL (4.70-6.10); Red Cell Dist. Width 14.9 % (11.5-14.5); White Blood Cell Count 9.1 10^3/uL (4.8-10.8)
[2023-12-24 18:55] VITALS: BP 163/80
[2023-12-24 19:00] VITALS: BP 151/82
[2023-12-24 19:00] LABS: INR 1.06; PT 13.6 Sec (11.4-14.6)
[2023-12-24 19:01] LABS: APTT 30.5 Sec (23.4-35.0)
[2023-12-24 19:10] LABS: ALT (SGPT) 11 U/L (0-50); AST (SGOT) 20 U/L (17-59); Albumin 3.4 g/dl (3.5-5.0); Alkaline Phosphatase 78 U/L (38-126); Blood Urea Nitrogen 22 mg/dl (9-20); Calcium 9.1 mg/dl (8.4-10.2); Carbon Dioxide 27 mmol/L (22-30); Chloride 104 mmol/L (98-107); Estimated Creatinine Clearance 59 ml/min; Glucose 121 mg/dl (70-99); Sodium 140 mmol/L (135-145); Total Bilirubin 0.6 mg/dl (0.2-1.3); Total Protein 6.2 g/dl (6.3-8.2); eGFR > 60.00
[2023-12-24 20:04] VITALS: BP 110/91
[2023-12-24] MEDS: BENADRYL 50 MG IV (20:04)
[2023-12-24] MEDS: SOLU-CORTEF 200 MG IV (20:05)
--- NOTE | 2023-12-24 22:22 | ED.GENMED ---
History of Present Illness
General
Chief Complaint: Rectal Bleeding
Source: patient and spouse
Exam Limitations: none
Time Seen by Provider: 12/24/23 19:00
Travel History
Have you had any contact with someone who has COVID-19?: No
Do you have any symptoms of coronavirus? Fever > 100 degrees, chills, cough, shortness of breath, sore throat, loss of taste or smell, muscle aches, or headache?: No
History of Present Illness
History of Present Illness:
78-year-old male who presents with rectal bleeding. Patient presents after he began bleeding rectally today. He was just admitted to the hospital and had blood in about 10 days. Patient on arrival to the treatment room let out a large bloody
bowel movement into the toilet. Patient offers no current complaints and denies abdominal pain lightheadedness.
Past History
Past History
ED Past Medical History: HTN, Hypothyroidism and Other (kidney stones, diverticulosis, non-sustained VT)
Social History
Tobacco: Non-smoker
Personal:
Living: with family
Employment: Employed
Phy Exam
Physical Exam
Physical Exam:
CONSTITUTIONAL Patient alert and oriented to person, place and time. Well-appearing. Vital signs reviewed.
HEAD atraumatic, normocephalic.
EYES eyelids normal to inspection, Pupils equally round and reactive to light, Extraocular muscles intact, Conjunctiva normal, Sclera normal.
NECK normal range of motion, Trachea midline, no jugular venous distention.
RESPIRATORY CHEST No respiratory distress noted, Chest expansion equal, Bilateral breath sounds clear.
CARDIOVASCULAR regular rate and rhythm, Heart sounds normal.
ABDOMEN abdomen nontender, Bowel sounds normal. No distention.
BACK normal inspection, no obvious deformities
UPPER EXTREMITY range of motion normal, Motor strength normal, no cyanosis, no edema.
LOWER EXTREMITY range of motion normal, Motor strength normal, no cyanosis, no edema.
NEURO Speech normal, No focal motor deficits, Nebo coma scale 15, Memory normal, Cranial Nerves intact to screening exam.
SKIN skin warm, dry, and normal in color.
Course
Orders/Labs/Results
Orders:
Orders
12/24/23 18:41
Type+Screen Urgent
Complete Blood Count/With Diff Urgent
Comprehensive Metabolic Panel Urgent
PTT Urgent
Prothrombin Time Urgent
12/24/23 19:41
IV Insert/Care/Rem.- Treatment PRN
12/24/23 19:42
CT Abd/pelvis Angio W/wo Iv Urgent
Comment:
Reason For Exam: lower GI Bleed
12/24/23 19:52
Diphenhydramine [Benadryl] 50 mg IV NOW STA
Hydrocortisone Sod Succinate [Solu-Cortef] 200 mg IV NOW STA
Abnormal Lab Results
12/24/23
18:41
RBC 3.65 L 10^6/uL
(4.70-6.10)
Hgb 10.7 L g/dL
(13.0-18.0)
Hct 31.6 L %
(39.0-52.0)
RDW 14.9 H %
(11.5-14.5)
Absolute Neuts (auto) 6.9 H 10^3/uL
(1.4-6.5)
Neutrophils % 76.0 H %
(42.2-75.2)
Lymphocytes % 14.5 L %
(20.5-51.1)
BUN 22 H mg/dl
(9-20)
Glucose 121 H mg/dl
(70-99)
Total Protein 6.2 L g/dl
(6.3-8.2)
Albumin 3.4 L g/dl
(3.5-5.0)
12/24/23 18:41
12/24/23 18:41
Vital Signs
Initial and Last Documented VS:
Initial Vital Signs
Temp Pulse Resp BP Pulse Ox
98.2 F 86 20 180/97 99
12/24/23 18:27 12/24/23 18:27 12/24/23 18:27 12/24/23 18:27 12/24/23 18:27
Last Documented Vital Signs
Temp Pulse Resp BP Pulse Ox
98.2 F 65 32 110/91 98
12/24/23 18:27 12/24/23 21:30 12/24/23 21:30 12/24/23 20:04 12/24/23 21:30
MDM/Problems Addressed
MDM/Problems Addressed:
Diverticulosis, lower GI bleeding
*Radiology
Radiology exam reviewed: preliminary read by ED provider (No free air)
*Pulse Oximetry
Patient hypoxic: no
*Telephone Engineer Interpretation
Rate: normal
Rhythm: sinus
*Critical Care Note
Total Time (30-74mins, 75-104mins- exclusive of procedures): 45 minutes
Data Reviewed
Review of Other/Old Records Reveals: Progress Notes (Recent GI evaluation reviewed) and Discharge Summary (Recent discharge summary reviewed)
Source: patient and family
Prescriptions/Medications Considered But Not Given:
Consider Protonix but suspect lower GI bleeding
Patient Management
Discussion with other providers: Hospitalist
Escalation/DeEscalation of care consider admission/obs:
78-year-old male again with lower GI bleeding. Admit. CTA negative for active hemorrhage
ED Attending Note
-
Portions of this chart may have been created with voice recognition software.� Occasional wrong word or��sound alike� substitutions may have occurred due to the inherent limitations of voice recognition software.
Discharge Plan
Departure
Patient Disposition: Admit
Date of Disposition: 12/24/23
Time of Disposition: 23:16
Admit to: Telemetry
Presentation/result/management discussed w/ accepting MD/DO: Hospitalist
Discharge Problem:
Acute GI bleeding
Interventions
Interventions:
*Risk Screen - Suicide Last Done: 12/25/23 01:05
*General Assessment Last Done: 12/24/23 18:50
*Neglect/Abuse Screening Last Done: 12/24/23 18:50
ED- Fall Risk Assessment Last Done: 12/24/23 18:50
*ED COVID-19 Vaccine History Last Done: 12/25/23 01:05
*Nursing Disposition Last Done: 12/25/23 01:00
NF-Nzieua-Jdadnghfgb Assessment Last Done: 12/24/23 18:50
ED- Cardiac Assessment Last Done: 12/24/23 18:50
ED- Pulmonary Assessment Last Done: 12/24/23 18:50
Discharge Date and Time
Discharge Date/Time: 12/25/23 01:01
--- NOTE | 2023-12-24 23:54 | HPS.HSE ---
Addendum entered and electronically signed by Shavon Carrion MD 12/25/23 00:15:
I saw and examined the patient.
The MARKET GARDENER's note was reviewed and I agree with the note.
Comment:
Mr. Noel Ruffin is a 78 yo man with hx HTN, recent admission 12/13-12/15/23 for lower GI bleeding (likely diverticular resolved on its own, no colonoscopy performed) presents to the ER with repeated episodes of BRBPR today. Triage VS T 98.2, P 86, RR
20, BP 180/97, SpO2 99%. Labs with WBC 9.1, Hg 10.7, PLT 307, Na 140, K+ 4.0, BUN 22, Cr 0.8, Glucose 121.
On exam patient is in no acute distress, awake, alert, conversant. CV: S1, S2, RRR, Chest clear, abdomen benign, no LE swelling.
CT A/P
IMPRESSION:
No evidence of active intraluminal extravasation of contrast material to suggest active gastrointestinal hemorrhage within the colon or small bowel.
Patient will be admitted for further work-up of lower GI Bleeding. Trend H/H. Blood consent signed. GI consulted. CLD for now. Hold AUTOMATION LEAD lisinopril given acute episode bleeding.
Original Note:
Family Physician
-
Family Physician: Kayode Jean
Chief Complaint
-
Rectal Bleeding
History of Present Illness
Patient is an 78 y/o male past medical history of hypertension, and recent GI bleed who presents with rectal bleeding. Patient reports he had a little bit of bleeding this morning, but then after dinner he a large episode which prompted him to come
to the emergency department. He had a second episode of bleeding in the ED, but reports no further episodes. He denies abdominal pain. He denies dizziness, lightheadedness, chest pain or shortness of breath.
Medical History
Past Medical History
Past Medical History: Reports Other
Additional Past Medical History:
Essential Hypertension
NSVT
Past Surgical History: Reports None
Social History
Tobacco: Non-smoker
Alcohol: None
Family History
Family History: Not pertinent
Allergies / Home Medications
Allergies reflects when Allergies were last updated in [facility].
Home Medications with original date entered in [facility]
Allergy/Medication List:
Allergies
Allergy/AdvReac Type Severity Reaction Status Date / Time
iodine Allergy Shortness Verified 12/13/23 01:33
of Breath
Sulfa (Sulfonamide Allergy Rash Verified 12/13/23 01:33
Antibiotics)
sulfamethoxazole Allergy Rash Verified 12/13/23 01:33
trimethoprim Allergy Rash Verified 12/13/23 01:33
IVP Dye Allergy Fainted Uncoded 12/13/23 01:33
Home Medications
lisinopril 10 mg tablet 10 mg PO DAILY Blood Pressure 06/30/12
zinc 50 mg tablet 50 mg PO DAILY Supplement 12/18/20
cholecalciferol (vitamin D3) 50 mcg (2,000 unit) tablet 50 mcg PO DAILY Supplement 12/24/23
Review of Systems
-
A 12 point ROS was completed and negative except as noted: Yes
Constitutional: Denies Fever or Chills
Respiratory: Denies Cough or Trouble Breathing
Cardiac: Denies Chest Pain or Palpitations
Abdomen/GI: Reports See HPI
Physical Exam
Vital Signs
Vital Signs
Temp Pulse Resp BP Pulse Ox
98.2 F 84 19 110/91 98
12/24/23 18:27 12/24/23 20:15 12/24/23 20:15 12/24/23 20:04 12/24/23 20:15
Physical Exam
General: Comfortable and Conversant
HEENT: Anicteric and Moist mucous membranes
Respiratory: Clear and Non Labored Respirations
Cardiac: S1/S2 and Regular Rhythm
GI: Soft and Non Tender
Musculoskeletal: No Clubbing, No Cyanosis and No Edema
Skin: Warm and Dry
Neuro: Awake, Alert, Oriented and Nonfocal/grossly intact
Laboratory Results
-
12/24/23 18:41
12/24/23 18:41
Laboratory Results
PT 13.6 Sec (11.4-14.6) 12/24/23 18:41
INR 1.06 12/24/23 18:
APTT 30.5 Sec (23.4-35.0) 12/24/23 18:41
Total Bilirubin 0.6 mg/dl (0.2-1.3) 12/24/23 18:41
AST 20 U/L (17-59) 12/24/23 18:41
ALT 11 U/L (0-50) 12/24/23 18:41
Alkaline Phosphatase 78 U/L (38-126) 12/24/23 18:41
Data Reviewed
-
Lab Data: Labs Reviewed by me
Old Records: Reviewed
Impression/Plan
-
Rectal Bleeding, likely recurrent diverticular bleeding
-Consult GI
-Trend serial H&H
-Allow clear liquids
Essential hypertension
-Hold lisinopril with acute bleeding
Hx NSVT
-Monitor on telemetry
DVT proph: SCDs
Code Status: Full Code
[2023-12-25] VITALS (7 sets, daily range): BP systolic 128–140; BP diastolic 64–85; BMI 18.0
[2023-12-25 01:03] LABS: Hemoglobin 8.7 g/dL (13.0-18.0)
[2023-12-25] MEDS: NSS 1000 IV ×2 (01:22→15:25)
[2023-12-25 06:31] LABS: Hemoglobin 8.5 g/dL (13.0-18.0); Mean Corpuscular Hgb 30.1 pg (27.0-31.0); Mean Corpuscular Volume 88.7 fL (80.0-94.0); Mean Platelet Volume 10.1 fL (7.4-10.4); Platelet Count 275 10^3/uL (130-400); Red Blood Cell Count 2.82 10^6/uL (4.70-6.10); White Blood Cell Count 8.2 10^3/uL (4.8-10.8)
[2023-12-25 06:59] LABS: Blood Urea Nitrogen 22 mg/dl (9-20); Calcium 8.4 mg/dl (8.4-10.2); Carbon Dioxide 24 mmol/L (22-30); Chloride 107 mmol/L (98-107); Estimated Creatinine Clearance 64 ml/min; Glucose 135 mg/dl (70-99); Potassium 4.4 mmol/L (3.5-5.1); Sodium 138 mmol/L (135-145); eGFR > 60.00
--- NOTE | 2023-12-25 09:56 | CON.GI ---
Addendum entered and electronically signed by Raghu Ruffin MD 12/25/23 12:56:
I saw and examined the patient.
The PA's note was reviewed and I agree with the note.
Comment:
The patient is a 78 year old male with h/o HTN and hypothyroidism p/w painless hematochezia. He was admitted 2 weeks ago for similar episode. No associated fever, chills, nausea, vomiting, diarrhea or constipation. He denies straining. His last
colonoscopy was in 2011 and showed diverticulosis, internal and external hemorrhoids, as well as a 5 mm hyperplastic sigmoid polyp.
Impression / Rec:
1. Diverticular hemorrhage - this is pt's second presentation with painless hematochezia. His history is classic for diverticular hemorrhage. Had hematochezia x 2, one at home, second while in ER. Unfortunately CTA was done about 2 hours after
his second hematochezia, which probably missed the window as it was -ve for active bleeding. Hgb 10.7 on presentation (left 2 weeks ago with 10), down to 8.5 today. Denies NSAID use, not on AC. Do not think endo eval would be helpful given the
strong clinical probability of diverticular hemorrhage. Recommend monitoring Hgb and clinical status. If he develops active bleeding, then should have CTA stat to catch it, otherwise, if he doesn't bleed by tomorrow, can d/c home with GI f/u.
Will s/o, call with questions.
Original Note:
Consultation
-
Date/Time Consultation Requested: 12/25/23102
Date/Time Consultation Performed: 12/25/23 4306
Requesting Provider: Amy Hernandez PA-C
Performing Provider: Dr. Ruffin / Isabella Farris PA-C
Reason for Consultation: rectal bleeding
Medical History
Chief Complaint / HPI
Chief Complaint: rectal bleeding
History of Present Illness:
This is an 78 year old male with a past medical history of HTN, hypothyroidism, admitted 2 weeks ago for similar bleeding, who presents for rectal bleeding which started again yesterday. He was admitted 2 to 12/15/23 and had no further bleeding
after discharge, until yesterday evening after dinner. He had 2 episodes of painless bright red bleeding with bowel movements yesterday, and one today, for a total of 3. Most recent BM he notes 'just a small amount of blood.' No associated fever,
chills, nausea, vomiting, diarrhea or constipation. He denies straining. His last colonoscopy was in 2011 and showed diverticulosis, internal and external hemorrhoids, as well as a 5mm hyperplastic sigmoid polyp. Initial labs in the ER showed Hgb of
10.7, down to 8.5 today 12/25. CTA abd/pelvis shows no active bleeding. His prior CT of the abdomen/pelvis showed extensive diverticulosis, most prominent in the sigmoid colon. No family history of IBD or colon cancer. He is not on anticoagulation
and denies NSAID use.
Past Medical History
Past Medical History: HTN and Hypothyroidism
Past Surgical History: None
Social History
Tobacco: Non-Smoker
Alcohol: Occasional (3 beers/week)
Drug: None
Personal:
Living: With Family
Family History
Family History: Other (no family history of GI malignancies or inflammatory bowel disease)
Allergies / Home Medications
Allergy/AdvReac Type Severity Reaction Status Date / Time
iodine Allergy Shortness Verified 12/13/23 01:33
of Breath
Sulfa (Sulfonamide Allergy Rash Verified 12/13/23 01:33
Antibiotics)
sulfamethoxazole Allergy Rash Verified 12/13/23 01:33
trimethoprim Allergy Rash Verified 12/13/23 01:33
IVP Dye Allergy Fainted Uncoded 12/13/23 01:33
Medication Instructions Recorded
lisinopril 10 mg tablet 10 mg PO DAILY Blood Pressure 06/30/12
zinc 50 mg tablet 50 mg PO DAILY Supplement 12/18/20
cholecalciferol (vitamin D3) 50 50 mcg PO DAILY Supplement 12/24/23
mcg (2,000 unit) tablet
Review of Systems
-
History Source: Patient
All other systems: A 12 pt ROS was Negative except as stated above in HPI
Vital Signs
Temp Pulse Resp BP Pulse Ox
97.8 F 62 18 140/64 100
12/25/23 07:00 12/25/23 07:00 12/25/23 07:00 12/25/23 07:00 12/25/23 07:00
Physical Exam
Exam
General: Well Developed, Well Nourished and No Apparent Distress
Respiratory: Clear
Cardiac: Regular Rhythm
GI: Soft, Non Tender, Non Distended and Normal Bowel Sounds
Skin: Warm and Dry
Neuro: AO x 3
Psych: Calm
Results
WBC 8.2 10^3/uL (4.8-10.8) 12/25/23 05:30
Hgb 8.5 g/dL (13.0-18.0) L 12/25/23 05:30
Hct 25.0 % (39.0-52.0) L 12/25/23 05:30
MCV 88.7 fL (80.0-94.0) 12/25/23 05:30
Plt Count 275 10^3/uL (130-400) 12/25/23 05:30
Absolute Neuts (auto) 6.9 10^3/uL (1.4-6.5) H 12/24/23 18:41
PT 13.6 Sec (11.4-14.6) 12/24/23 18:41
INR 1.06 12/24/23 18:41
APTT 30.5 Sec (23.4-35.0) 12/24/23 18:41
Sodium 138 mmol/L (135-145) 12/25/23 05:30
Potassium 4.4 mmol/L (3.5-5.1) 12/25/23 05:30
Chloride 107 mmol/L (98-107) 02/15/24 05:30
Carbon Dioxide 24 mmol/L (22-30) 12/25/23 05:30
BUN 22 mg/dl (9-20) H 12/25/23 05:30
Creatinine 0.7 mg/dL (0.7-1.3) 12/25/23 05:30
Calcium 8.4 mg/dl (8.4-10.2) 12/25/23 05:30
Total Bilirubin 0.6 mg/dl (0.2-1.3) 12/24/23 18:41
AST 20 U/L (17-59) 12/24/23 18:41
ALT 11 U/L (0-50) 12/24/23 18:41
Alkaline Phosphatase 78 U/L (38-126) 12/24/23 18:41
Diagnostic Image Results:
CTA Abdomen/Pelvis 12/24/23:
No evidence of active intraluminal extravasation of contrast material to suggest active gastrointestinal hemorrhage within the colon or small bowel.
CT Abdomen/Pelvis w IV contrast 12/13/23:
Extensive colonic diverticulosis, most prominent sigmoid. No intestinal obstruction or free air.
Evaluation for active colonic bleeding markedly limited without angiographic technique.
Bilateral simple renal cysts. No evidence of obstructive uropathy bilaterally.
Enlarged prostate.
Prior GI Procedures:
EGD:�
Colonoscopy:
01/15/2012, Dr. Carreon:
Impression:� � � � � - Non-thrombosed external hemorrhoids.
�� � � � � � � � � � - One 5 mm polyp in the sigmoid colon. Resected and
�� � � � � � � � � � retrieved.
�� � � � � � � � � � - Diverticulosis in the sigmoid colon, in the descending
�� � � � � � � � � � colon, in the transverse colon and in the ascending
�� � � � � � � � � � colon.
�� � � � � � � � � � - Internal hemorrhoids.
Assessment / Plan
-
78 year old male with a past medical history of HTN, hypothyroidism, admitted 2 weeks ago for similar bleeding, who presents for rectal bleeding which started again yesterday. He was admitted 12/13 to 12/15/23 and had no further bleeding after
discharge, until yesterday evening after dinner. He had 2 episodes of painless bright red bleeding with bowel movements yesterday, and one today, for a total of 3. Most recent BM he notes 'just a small amount of blood.' No associated fever, chills,
nausea, vomiting, diarrhea or constipation. He denies straining. His last colonoscopy was in 2011 and showed diverticulosis, internal and external hemorrhoids, as well as a 5mm hyperplastic sigmoid polyp. Initial labs in the ER showed Hgb of 10.7,
down to 8.5 today 12/25. CTA abd/pelvis shows no active bleeding. His prior CT of the abdomen/pelvis showed extensive diverticulosis, most prominent in the sigmoid colon. No family history of IBD or colon cancer. He is not on anticoagulation and
denies NSAID use.
IMPRESSION / PLAN:
Rectal Bleeding, possible etiologies including diverticular bleeding, AVMs, ischemic colitis, or (less likely) infectious colitis
-Hgb 10.7 initially in ER, now 8.5
-continue to trend Hgb
-tranfuse if Hgb falls to 7 or below
-CTA showed no evidence of active bleeding
-consider flex sig vs colonoscopy
We will follow.
-
-
Thank you for consultation and allowing me to participate in the patient's care. Please call the sanitation laborer GI physician during the after hours with any questions or concerns.
--- NOTE | 2023-12-25 13:50 | W.PN.HOSP.TC ---
Today's Communication/Plan
-
monitor hgb
stat cta if repeat bleeding
Assessment / Plan
Assessment / Plan
Physical Exam
General: Comfortable and Conversant
HEENT: Anicteric and Moist mucous membranes
Respiratory: Clear and Non Labored Respirations
Cardiac: S1/S2 and Regular Rhythm
GI: Soft and Non Tender
Musculoskeletal: No Clubbing, No Cyanosis and No Edema
Skin: Warm and Dry
Neuro: Awake, Alert, Oriented and Nonfocal/grossly intact
Rectal Bleeding, likely recurrent diverticular hemorrhage
� Presentation with painless hematochezia
� Continue to monitor hemoglobin, down to 8.5 today
� Stat CTA if repeat bleeding
� Continue to monitor additional day
-Trend serial H&H; ensure HgB >7
-Allow clear liquids
Essential hypertension
-Hold lisinopril with acute bleeding
Hx NSVT
-Monitor on telemetry
DVT proph: SCDs
Code Status: Full Code
Anticipated Discharge: Within 24 hours
Subjective/Interval History
-
Date of Service: December 25, 2023
painless hematochezia - no further episodes since yesterday evening
Objective Data
-
Labs:
Laboratory Results
12/25/23 12/25/23 12/25/23
05:30 14:00 22:00
WBC 8.2
Hgb 8.5 L Pending Pending
Hct 25.0 L
Plt Count 275
Sodium 138
Potassium 4.4
Chloride 107
Carbon Dioxide 24
BUN 22 H
Creatinine 0.7
Glucose 135 H
Calcium 8.4
Vital Signs:
Vital Signs
Temp Pulse Resp BP Pulse Ox
98.2 F 61 18 138/74 98
12/25/23 11:00 12/25/23 11:00 12/25/23 11:00 12/25/23 11:00 12/25/23 11:00
I&O
12/24/23 12/25/23 12/26/23
06:59 06:59 06:59
Intake Total 435 / 435
Output Total 400 / 400
Balance 35 / 35
Review of Systems
-
History Source: Patient
All other systems: Reviewed and negative
Physical Exam
-
General: Well Developed, Well Nourished, No Apparent Distress, Comfortable and Conversant
HEENT: Normocephalic, Atraumatic, PERRLA, Nose Appears Normal and Ears Appear Normal
Respiratory: Clear to Auscultation
Cardiac: Regular Rhythm and S1/S2
GI: Soft, Nontender and Nondistended
Skin: Warm and Dry; Negative Rash or Ulcers
Neuro: Awake, Alert, Oriented and AO x 3
Psych: Calm
Data Reviewed
-
CT Scan: Image personally visualized and interpreted and Report Reviewed by me
Labs: Labs Reviewed by me
--- NOTE | 2023-12-25 15:24 | CM ---
CM met patient upon last admit in ER. Spoke to and confirmed no changes from last admit. Patient back with another rectal bleed. He lives with in 2 level home. From lower level up 12 steps to living areas, 12 more steps to bedroom and
full bathroom. HE does not own any DME.
PCP Dr. Kayode Baez
Pharmacy: [facility]
Plan;home when stable.
[2023-12-25] MEDS: SOLU-CORTEF 200 MG IV (17:07)
[2023-12-25] MEDS: SODIUM BICARBONATE 1150 MEQ IV (17:11)
[2023-12-25] MEDS: BENADRYL 50 MG IV (17:17)
[2023-12-25 22:06] LABS: Hemoglobin 7.3 g/dL (13.0-18.0)
[2023-12-26] VITALS (9 sets, daily range): BP systolic 137–153; BP diastolic 57–71; BMI 18.2
[2023-12-26] MEDS: NSS IV (02:49)
[2023-12-26 06:22] LABS: Mean Corp Hgb Conc. 34.5 g/dL (33.0-37.0); Mean Corpuscular Volume 86.8 fL (80.0-94.0); Mean Platelet Volume 10.3 fL (7.4-10.4); Platelet Count 242 10^3/uL (130-400); Red Blood Cell Count 2.27 10^6/uL (4.70-6.10); Red Cell Dist. Width 15.4 % (11.5-14.5); White Blood Cell Count 12.4 10^3/uL (4.8-10.8)
[2023-12-26 06:29] LABS: Hematocrit 19.7 % (39.0-52.0); Hemoglobin 6.8 g/dL (13.0-18.0)
[2023-12-26 06:43] LABS: ALT (SGPT) < 10 U/L (0-50); AST (SGOT) 18 U/L (17-59); Albumin 2.4 g/dl (3.5-5.0); Alkaline Phosphatase 50 U/L (38-126); Blood Urea Nitrogen 29 mg/dl (9-20); Calcium 8.1 mg/dl (8.4-10.2); Carbon Dioxide 26 mmol/L (22-30); Chloride 105 mmol/L (98-107); Estimated Creatinine Clearance 65 ml/min; Glucose 127 mg/dl (70-99); Sodium 135 mmol/L (135-145); Total Bilirubin 0.6 mg/dl (0.2-1.3); Total Protein 4.8 g/dl (6.3-8.2); eGFR > 60.00
--- NOTE | 2023-12-26 12:49 | W.PN.HOSP.TC ---
Today's Communication/Plan
-
monitor hgb, transfuse today
Scope as per GI
Assessment / Plan
Assessment / Plan
Physical Exam
General: Comfortable and Conversant
HEENT: Anicteric and Moist mucous membranes
Respiratory: Clear and Non Labored Respirations
Cardiac: S1/S2 and Regular Rhythm
GI: Soft and Non Tender
Musculoskeletal: No Clubbing, No Cyanosis and No Edema
Skin: Warm and Dry
Neuro: Awake, Alert, Oriented and Nonfocal/grossly intact
Rectal Bleeding, likely recurrent diverticular hemorrhage
Acute Blood Loss Anemia
� Presentation with painless hematochezia
� Continue to monitor hemoglobin, down to 8.5 today
� Continue to monitor additional day
-Trend serial H&H; ensure HgB >7; transfuse today
-Scope as per GI
Essential hypertension
-Hold lisinopril with acute bleeding
Hx NSVT
-Monitor on telemetry
DVT proph: SCDs
Code Status: Full Code
Anticipated Discharge: 24 - 48 hours
Subjective/Interval History
-
Date of Service: December 26, 2023
hgb dropped, no active bleeding on scan yest
Objective Data
-
Labs:
Laboratory Results
12/26/23
05:39
WBC 12.4 H
Hgb 6.8 L*
Hct 19.7 L*
Plt Count 242
Sodium 135
Potassium 4.0
Chloride 105
Carbon Dioxide 26
BUN 29 H
Creatinine 0.7
Glucose 127 H
Calcium 8.1 L
Total Bilirubin 0.6
AST 18
ALT < 10
Alkaline Phosphatase 50
Vital Signs:
Vital Signs
Temp Pulse Resp BP Pulse Ox
98.6 F 80 16 149/61 99
12/26/23 12:47 12/26/23 12:47 12/26/23 12:47 12/26/23 12:47 12/26/23 11:22
I&O
12/25/23 12/26/23 12/27/23
06:59 06:59 06:59
Intake Total 435 / 435 440 / 440 250 / 250
Output Total 400 / 400
Balance 35 / 35 440 / 440 250 / 250
Review of Systems
-
History Source: Patient
All other systems: Reviewed and negative
Physical Exam
-
General: Well Developed, Well Nourished, No Apparent Distress, Comfortable and Conversant
HEENT: Normocephalic, Atraumatic, PERRLA, Nose Appears Normal and Ears Appear Normal
Respiratory: Clear to Auscultation
Cardiac: Regular Rhythm and S1/S2
GI: Soft, Nontender and Nondistended
Skin: Warm and Dry; Negative Rash or Ulcers
Neuro: Awake, Alert, Oriented and AO x 3
Psych: Calm
Data Reviewed
-
CT Scan: Image personally visualized and interpreted and Report Reviewed by me
Labs: Labs Reviewed by me
--- NOTE | 2023-12-26 15:40 | CM ---
Chart reviewed
For transfusion today
Pending PT eval
CM will cont to follow for needs
Plan - anticipate home to previous setting - needs tbd
[2023-12-27] VITALS (7 sets, daily range): BP systolic 135–169; BP diastolic 76–99; BMI 18.1
[2023-12-27 08:29] LABS: Hematocrit 22.4 % (39.0-52.0); Hemoglobin 7.5 g/dL (13.0-18.0); Mean Corp Hgb Conc. 33.5 g/dL (33.0-37.0); Mean Corpuscular Hgb 30.1 pg (27.0-31.0); Mean Platelet Volume 10.2 fL (7.4-10.4); Platelet Count 215 10^3/uL (130-400); Red Blood Cell Count 2.49 10^6/uL (4.70-6.10); Red Cell Dist. Width 15.6 % (11.5-14.5); White Blood Cell Count 9.4 10^3/uL (4.8-10.8)
[2023-12-27 08:37] LABS: ALT (SGPT) < 10 U/L (0-50); AST (SGOT) 16 U/L (17-59); Albumin 2.4 g/dl (3.5-5.0); Alkaline Phosphatase 55 U/L (38-126); Blood Urea Nitrogen 29 mg/dl (9-20); Carbon Dioxide 29 mmol/L (22-30); Chloride 104 mmol/L (98-107); Estimated Creatinine Clearance 50 ml/min; Glucose 85 mg/dl (70-99); Potassium 3.6 mmol/L (3.5-5.1); Sodium 138 mmol/L (135-145); Total Bilirubin 0.7 mg/dl (0.2-1.3); Total Protein 4.7 g/dl (6.3-8.2); eGFR > 60.00
--- NOTE | 2023-12-27 13:25 | W.PN.GI.CBS2 ---
Today's Communication / Plan
-
cscope tmwr, monitor hb
Assessment / Plan
-
78 year old male with a past medical history of HTN, hypothyroidism, admitted 2 weeks ago for similar bleeding, who presents for rectal bleeding which started again yesterday. He was admitted 2 to 12/15/23 and had no further bleeding after discharge
until 12/24. Had 2 CTAs here that were essentially negative 12/24 and 12/25 (12/25: 'Some mild enhancement of the wall of the ascending colon immediate postcontrast administration, as detailed above. Findings are doubtful to represent active colonic
bleeding as on delayed postcontrast imaging there does not appear to be intraluminal contrast').
Suspect diverticular bleeding. Had cscope 2011 with faust tics.
Discussed with pt and options: watch and wait, perform cscope ensure no other etiology as has been 12 years since last scope although if diverticular bleeding unlikely to be able to treat, surgery (would not recommend would need total
colectomy), repeat CTA (2 negatives at this point would only do if pouring out blood at this point).
Patient and would like to move forward with cscope - r/a/b discussed as well as increased risk given age.
Plan to set up for cscope tomorrow, had light breakfast, will give miralax this afternoon with gavilyte moy.
D/w hospitalist.
Subjective
Subjective
Date of Service: December 27, 2023
GI reconsulted for ongoing bleeding
Episode bloody BM yesterday and 2 today
Required 1 U PRBC yesterday
Objective
Data Reviewed
Laboratory Data:
Laboratory Results
12/27/23 07:16
12/27/23 07:16
Laboratory Results
PT 13.6 Sec (11.4-14.6) 12/24/23 18:41
INR 1.06 12/24/23 18:41
APTT 30.5 Sec (23.4-35.0) 12/24/23 18:41
Magnesium 2.0 mg/dl (1.6-2.3) 12/25/23 05:30
Total Bilirubin 0.7 mg/dl (0.2-1.3) 12/27/23 07:16
AST 16 U/L (17-59) L 12/27/23 07:16
ALT < 10 U/L (0-50) 12/27/23 07:16
Alkaline Phosphatase 55 U/L (38-126) 12/27/23 07:16
Vital Signs and I&O:
Vital Signs
Temp Pulse Resp BP Pulse Ox
98.6 F 61 18 161/76 98
12/27/23 11:57 12/27/23 11:57 12/27/23 11:57 12/27/23 11:57 12/27/23 08:22
I&O
12/26/23 12/27/23 12/28/23
06:59 06:59 06:59
Intake Total 440 / 440 910 / 910
Balance 440 / 440 910 / 910
Physical Exam
Physical Exam
GI: Non Distended and Non Tender
--- NOTE | 2023-12-27 13:38 | W.PN.HOSP.TC ---
Today's Communication/Plan
-
scope tomorrow
monitor hgb
Assessment / Plan
Assessment / Plan
Physical Exam
General: Comfortable and Conversant
HEENT: Anicteric and Moist mucous membranes
Respiratory: Clear and Non Labored Respirations
Cardiac: S1/S2 and Regular Rhythm
GI: Soft and Non Tender
Musculoskeletal: No Clubbing, No Cyanosis and No Edema
Skin: Warm and Dry
Neuro: Awake, Alert, Oriented and Nonfocal/grossly intact
Rectal Bleeding, likely recurrent diverticular hemorrhage
Acute Blood Loss Anemia
� Presentation with painless hematochezia
� Continue to monitor hemoglobin,
� Continue to monitor additional day
-Trend serial H&H; ensure HgB >7; transfused 12/26
-Scope as per GI - tomorrow
Essential hypertension
-Hold lisinopril with acute bleeding
Hx NSVT
-Monitor on telemetry
DVT proph: SCDs
Code Status: Full Code
Anticipated Discharge: > 48 hours
Subjective/Interval History
-
Date of Service: December 27, 2023
had repeated bloody bms
Objective Data
-
Labs:
Laboratory Results
12/27/23 12/27/23
07:16 16:00
WBC 9.4
Hgb 7.5 L Pending
Hct 22.4 L
Plt Count 215
Sodium 138
Potassium 3.6
Chloride 104
Carbon Dioxide 29
BUN 29 H
Creatinine 0.9
Glucose 85
Calcium 8.0 L
Total Bilirubin 0.7
AST 16 L
ALT < 10
Alkaline Phosphatase 55
Vital Signs:
Vital Signs
Temp Pulse Resp BP Pulse Ox
98.6 F 61 18 161/76 98
12/27/23 11:57 12/27/23 11:57 12/27/23 11:57 12/27/23 11:57 12/27/23 08:22
I&O
12/26/23 12/27/23 12/28/23
06:59 06:59 06:59
Intake Total 440 / 440 910 / 910
Balance 440 / 440 910 / 910
Review of Systems
-
History Source: Patient
All other systems: Not reviewed unless documented
Physical Exam
-
General: Well Developed, Well Nourished, No Apparent Distress, Comfortable and Conversant
HEENT: Normocephalic, Atraumatic, PERRLA, Nose Appears Normal and Ears Appear Normal
Respiratory: Clear to Auscultation
Cardiac: Regular Rhythm and S1/S2
GI: Soft, Nontender and Nondistended
Skin: Warm and Dry; Negative Rash or Ulcers
Neuro: Awake, Alert, Oriented and AO x 3
Psych: Calm
Data Reviewed
-
CT Scan: Image personally visualized and interpreted and Report Reviewed by me
Labs: Labs Reviewed by me
[2023-12-27] MEDS: MIRALAX 68 GRAMS PO (13:57)
[2023-12-27 14:42] LABS: Hemoglobin 7.1 g/dL (13.0-18.0)
[2023-12-27] MEDS: NULYTELY SOLUTION 4 LITERS PO (17:09)
[2023-12-28 01:07] LABS: Hemoglobin 7.2 g/dL (13.0-18.0)
[2023-12-28 03:05] VITALS: BP 148/72
[2023-12-28 06:00] VITALS: BMI 18.0
[2023-12-28 07:00] VITALS: BP 146/71
[2023-12-28 07:45] LABS: Hemoglobin 7.5 g/dL (13.0-18.0); Mean Corp Hgb Conc. 34.1 g/dL (33.0-37.0); Mean Corpuscular Hgb 30.5 pg (27.0-31.0); Mean Corpuscular Volume 89.4 fL (80.0-94.0); Mean Platelet Volume 9.9 fL (7.4-10.4); Platelet Count 234 10^3/uL (130-400); Red Blood Cell Count 2.46 10^6/uL (4.70-6.10); Red Cell Dist. Width 15.8 % (11.5-14.5); White Blood Cell Count 11.6 10^3/uL (4.8-10.8)
[2023-12-28 07:58] LABS: Blood Urea Nitrogen 19 mg/dl (9-20); Carbon Dioxide 28 mmol/L (22-30); Chloride 105 mmol/L (98-107); Estimated Creatinine Clearance 56 ml/min; Glucose 89 mg/dl (70-99); Potassium 3.6 mmol/L (3.5-5.1); Sodium 138 mmol/L (135-145); eGFR > 60.00
--- NOTE | 2023-12-28 11:53 | W.PN.UPDATE ---
Update Note
Progress Note Update
updated patient , patient and hospitalist about cscope
[2023-12-28 12:17] VITALS: BP 146/78
--- NOTE | 2023-12-28 13:02 | W.PN.HOSP.TC ---
Today's Communication/Plan
-
trend cbc, further bleeding
Adv diet
possible dc in am if stable
Assessment / Plan
Assessment / Plan
Physical Exam
General: Comfortable and Conversant
HEENT: Anicteric and Moist mucous membranes
Respiratory: Clear and Non Labored Respirations
Cardiac: S1/S2 and Regular Rhythm
GI: Soft and Non Tender
Musculoskeletal: No Clubbing, No Cyanosis and No Edema
Skin: Warm and Dry
Neuro: Awake, Alert, Oriented and Nonfocal/grossly intact
Rectal Bleeding, likely recurrent diverticular hemorrhage
Acute Blood Loss Anemia
� Presentation with painless hematochezia
� Continue to monitor hemoglobin,
� Continue to monitor additional day
-Trend serial H&H; ensure HgB >7; transfused 12/26
-Scope as per GI :
- Diverticulosis in the entire examined colon.
�� � � � � � � � � � � - A single non-bleeding colonic angioectasia. Treated
�� � � � � � � � � � � with argon plasma coagulation (APC).
�� � � � � � � � � � � - Two 2 mm polyps at the hepatic flexure and at the
�� � � � � � � � � � � ileocecal valve, removed with a jumbo cold forceps.
�� � � � � � � � � � � Resected and retrieved.
�� � � � � � � � � � � - Internal hemorrhoids.
�� � � � � � � � � � � Suspect diverticular bleeding that has resolved.
Advance diet
If no further bleeding, can DC tomorrow
Repeat C-Scope outpatient
Essential hypertension
-Hold lisinopril with acute bleeding
Hx NSVT
-Monitor on telemetry
DVT proph: SCDs due to recent bleed
Code Status: Full Code
Anticipated Discharge: Within 24 hours
Subjective/Interval History
-
Date of Service: December 28, 2023
scope today
Objective Data
-
Labs:
Laboratory Results
12/28/23 12/28/23
00:36 06:39
WBC 11.6 H
Hgb 7.2 L 7.5 L
Hct 22.0 L
Plt Count 234
Sodium 138
Potassium 3.6
Chloride 105
Carbon Dioxide 28
BUN 19
Creatinine 0.8
Glucose 89
Calcium 8.0 L
Vital Signs:
Vital Signs
Temp Pulse Resp BP Pulse Ox
97.5 F 59 18 146/78 98
12/28/23 12:17 12/28/23 12:17 12/28/23 12:17 12/28/23 12:17 12/28/23 12:17
I&O
12/27/23 12/28/23 12/29/23
06:59 06:59 06:59
Intake Total 910 / 910 5800 / 5800
Balance 910 / 910 5800 / 5800
Review of Systems
-
History Source: Patient
All other systems: Not reviewed unless documented
Physical Exam
-
General: Well Developed, Well Nourished, No Apparent Distress, Comfortable and Conversant
HEENT: Normocephalic, Atraumatic, PERRLA, Nose Appears Normal and Ears Appear Normal
Respiratory: Clear to Auscultation
Cardiac: Regular Rhythm and S1/S2
GI: Soft, Nontender and Nondistended
Skin: Warm and Dry; Negative Rash or Ulcers
Neuro: Awake, Alert, Oriented and AO x 3
Psych: Calm
Data Reviewed
-
CT Scan: Image personally visualized and interpreted and Report Reviewed by me
Labs: Labs Reviewed by me
[2023-12-28 15:38] VITALS: BP 135/62
[2023-12-28 19:40] VITALS: BP 138/66
[2023-12-28 23:20] VITALS: BP 146/66
[2023-12-29] VITALS (7 sets, daily range): BP systolic 121–163; BP diastolic 64–82; BMI 17.8
[2023-12-29 06:09] LABS: Mean Corp Hgb Conc. 33.3 g/dL (33.0-37.0); Mean Corpuscular Hgb 30.3 pg (27.0-31.0); Mean Corpuscular Volume 90.8 fL (80.0-94.0); Mean Platelet Volume 10.1 fL (7.4-10.4); Platelet Count 207 10^3/uL (130-400); Red Blood Cell Count 2.28 10^6/uL (4.70-6.10); Red Cell Dist. Width 16.3 % (11.5-14.5); White Blood Cell Count 8.4 10^3/uL (4.8-10.8)
[2023-12-29 06:20] LABS: Hematocrit 21.1 % (39.0-52.0)
[2023-12-29 06:37] LABS: Blood Urea Nitrogen 18 mg/dl (9-20); Carbon Dioxide 26 mmol/L (22-30); Chloride 105 mmol/L (98-107); Estimated Creatinine Clearance 49 ml/min; Glucose 90 mg/dl (70-99); Potassium 3.9 mmol/L (3.5-5.1); Sodium 136 mmol/L (135-145); eGFR > 60.00
--- NOTE | 2023-12-29 09:35 | W.PN.HOSP.TC ---
Today's Communication/Plan
-
transfuse 1 unit PRBC
Assessment / Plan
Assessment / Plan
A/P:
# GIB/Rectal Bleeding, likely recurrent diverticular hemorrhage
# Acute Blood Loss Anemia
Presentation with painless hematochezia
hemoglobin at 7.0 on 12/29, transfuse 1 unit PRBC
Scope as per GI: Diverticulosis in the entire examined colon. A single non-bleeding colonic angioectasia. Treated with argon plasma coagulation (APC). Two 2 mm polyps at the hepatic flexure and at the ileocecal valve, removed with a jumbo cold
forceps. Resected and retrieved. Internal hemorrhoids. Suspect diverticular bleeding that has resolved.
Advanced diet to regular
Repeat C-Scope outpatient
# Essential hypertension
Hold lisinopril with acute bleeding
# Hx NSVT
Monitor on telemetry
DVT proph: SCDs due to recent bleed
Code Status: Full Code
Anticipated Discharge: Within 24 hours
Subjective/Interval History
-
Date of Service: December 29, 2023
Objective Data
-
Labs:
Laboratory Results
12/29/23
05:30
WBC 8.4
Hgb 7.0 L
Hct 21.1 L
Plt Count 207
Sodium 136
Potassium 3.9
Chloride 105
Carbon Dioxide 26
BUN 18
Creatinine 0.9
Glucose 90
Calcium 8.0 L
Vital Signs:
Vital Signs
Temp Pulse Resp BP Pulse Ox
36.6 C 55 16 150/74 96
12/29/23 07:00 12/29/23 07:00 12/29/23 07:00 12/29/23 07:00 12/29/23 07:00
I&O
12/28/23 12/29/23 12/30/23
06:59 06:59 06:59
Intake Total 5800 / 5800 570 / 570
Output Total 200 / 200
Balance 5800 / 5800 370 / 370
Review of Systems
-
All other systems: Reviewed and negative
Physical Exam
-
General: Well Developed, Well Nourished, No Apparent Distress, Comfortable and Conversant
HEENT: Normocephalic, Atraumatic, Nose Appears Normal and Ears Appear Normal
Respiratory: Clear to Auscultation and Non Labored Respirations; Negative Accessory Resp Muscle Use
Cardiac: Regular Rhythm and S1/S2
GI: Soft, Nontender and Nondistended
Skin: Warm and Dry; Negative Rash or Ulcers
Neuro: Awake, Alert, Oriented and AO x 3
Psych: Calm and Intact Judgement/Insight
Data Reviewed
-
Labs: Labs Reviewed by me
--- NOTE | 2023-12-29 09:38 | W.PN.GI.CBS2 ---
Addendum entered and electronically signed by Emil Mcmillan MD 12/29/23 15:33:
I saw and examined the patient.
The STATION MANAGER or PA's note was reviewed and I agree with the note.
Comment:78 year old male with a past medical history of HTN, hypothyroidism, admitted 2 weeks ago for similar bleeding, who presents for rectal bleeding which started again yesterday. He was admitted 12/13 to 12/15/23 and had no further bleeding after
discharge until 12/24.� Had 2 CTAs here that were essentially negative 12/24 and 12/25 (12/25: 'Some mild enhancement of the wall of the ascending colon immediate postcontrast administration, as detailed above. Findings are doubtful to represent active
colonic bleeding as on delayed postcontrast imaging there does not appear to be intraluminal contrast').
Suspect diverticular bleeding.� Had cscope 2011 with faust tics.
Cscope yesterday 2 small polyps, one small AVM in cecum do not think cause, tics throughout, fair prep.
Suspect diverticular bleeding. Brown stool on exam and brown stool today.
D/w pt and . If want screening colonoscopy to call our office.
No further GI work up needed at this time, gi will sign off pls call with ?s.
Original Note:
Today's Communication / Plan
-
Bleeding now stopped and pt feeling well
diet as tolerated
some drop in hbg to 7 but range of 7 range since 12/25
await path of polyps
stable from GI standpoint
discussed with patient return to hospital with any recurrent bleeding after discharge
add low dose miralax if constipation after discharge to prevent constipation
will sign off for now call with questions
Assessment / Plan
-
78 year old male with a past medical history of HTN, hypothyroidism, admitted 2 weeks ago for similar bleeding, who presents for recurrent rectal bleeding. He was admitted 12/13 to 12/15/23 and had no further bleeding after discharge until 12/24. Had
2 CTAs here that were essentially negative 12/24 and 12/25 (12/25: 'Some mild enhancement of the wall of the ascending colon immediate postcontrast administration, as detailed above. Findings are doubtful to represent active colonic bleeding as on
delayed postcontrast imaging there does not appear to be intraluminal contrast').
�12/28 colonoscopy protano- Preparation of the colon was fair.
�� � � � � � � � � � � - Diverticulosis in the entire examined colon.
�� � � � � � � � � � � - A single non-bleeding colonic angioectasia. Treated
�� � � � � � � � � � � with argon plasma coagulation (APC).
�� � � � � � � � � � � - Two 2 mm polyps at the hepatic flexure and at the
�� � � � � � � � � � � ileocecal valve, removed with a [employer] cold forceps.
�� � � � � � � � � � � Resected and retrieved.
�� � � � � � � � � � � - Internal hemorrhoids.
�� � � � � � � � � � � Suspect diverticular bleeding that has resolve
-likely diverticular bleed
-anemia acute blood loss with GI bleed
-diverticulosis
-colon polyps
-HTN
-Hypothyroidism
PLAN:
Bleeding now stopped and pt feeling well
diet as tolerated
some drop in hbg to 7 with 7 range since 12/25
await path of polyps
stable from GI standpoint
discussed with patient return to hospital with any recurrent bleeding after discharge
add low dose miralax if constipation after discharge to prevent constipation
will sign off for now call with questions
Subjective
Subjective
Date of Service: December 29, 2023
stools now brown no further bleeding, on regular diet
Objective
Data Reviewed
Laboratory Data:
Laboratory Results
12/29/23 05:30
12/29/23 05:30
Laboratory Results
PT 13.6 Sec (11.4-14.6) 12/24/23 18:41
INR 1.06 12/24/23 18:41
APTT 30.5 Sec (23.4-35.0) 12/24/23 18:41
Magnesium 2.0 mg/dl (1.6-2.3) 12/25/23 05:30
Total Bilirubin 0.7 mg/dl (0.2-1.3) 12/27/23 07:16
AST 16 U/L (17-59) L 12/27/23 07:16
ALT < 10 U/L (0-50) 12/27/23 07:16
Alkaline Phosphatase 55 U/L (38-126) 12/27/23 07:16
Vital Signs and I&O:
Vital Signs
Temp Pulse Resp BP Pulse Ox
97.9 F 55 16 150/74 96
12/29/23 07:00 12/29/23 07:00 12/29/23 07:00 12/29/23 07:00 12/29/23 07:00
I&O
12/28/23 12/29/23 12/30/23
06:59 06:59 06:59
Intake Total 5800 / 5800 570 / 570
Output Total 200 / 200
Balance 5800 / 5800 370 / 370
Physical Exam
Physical Exam
HEENT: Anicteric and Moist mucous membranes
Cardiology: Normal Sinus Rhythm
Pulmonary: Clear
GI: Soft, Non Distended and Non Tender
Extremities: No Edema
Neuro: Non Focal
--- NOTE | 2023-12-29 16:42 | CM ---
Chart reviewed
Following CBC. Advancing diet
Waiting on PT recs
CM following for d/c needs
[2023-12-30] VITALS: BP 143/68
[2023-12-30 03:33] VITALS: BP 144/73
[2023-12-30 05:28] LABS: Hematocrit 24.7 % (39.0-52.0); Mean Corp Hgb Conc. 34.4 g/dL (33.0-37.0); Mean Corpuscular Hgb 31.1 pg (27.0-31.0); Mean Corpuscular Volume 90.5 fL (80.0-94.0); Mean Platelet Volume 9.8 fL (7.4-10.4); Platelet Count 205 10^3/uL (130-400); Red Blood Cell Count 2.73 10^6/uL (4.70-6.10); Red Cell Dist. Width 15.9 % (11.5-14.5); White Blood Cell Count 8.3 10^3/uL (4.8-10.8)
[2023-12-30 05:44] LABS: Hemoglobin 8.5 g/dL (13.0-18.0)
[2023-12-30 06:09] LABS: Blood Urea Nitrogen 15 mg/dl (9-20); Carbon Dioxide 27 mmol/L (22-30); Chloride 106 mmol/L (98-107); Estimated Creatinine Clearance 49 ml/min; Glucose 92 mg/dl (70-99); Potassium 3.8 mmol/L (3.5-5.1); Sodium 135 mmol/L (135-145); eGFR > 60.00
[2023-12-30 07:00] VITALS: BP 157/80
[2023-12-30 10:03] VITALS: BP 168/83; BP 176/92; PULSE 66
--- NOTE | 2023-12-30 10:29 | PN.CDI ---
CDI
- -
CDI:
Physician Documentation Request
Admit Date: 12/24/23 23:48
Dear Doctor Ryley,
Patient admitted with GI bleed.
Please review the following and provide your response in the progress notes.
Clinical Indicators:
Height: 5' 8'
Weight:117 lbs
BMI:17.8
If possible, please provide an associated diagnosis related to the abnormal BMI, such as:
Underweight
Cachectic
BMI is not significant
Other
BMI < or = to 19
Underweight
Weight Loss
Cachectic
Anorexia
Use of terms such as suspected, likely, concern for, or probable (associated with a specific diagnosis that is being evaluated, monitored, or treated as if it exists) are acceptable and can be coded in the inpatient setting, when documented at the
time of discharge.
Thank you,
Evelyn Davila RN, BSN
CDI Specialist
Avaailable via [employer]
Please use your independent medical judgment in providing your response.
--- NOTE | 2023-12-30 10:58 | W.PN.HOSP.TC ---
Addendum entered and electronically signed by Nenita Hedrick MD 12/30/23 14:17:
# Underweight
Addendum entered and electronically signed by Nenita Hedrick MD 12/30/23 13:41:
Total DC time 35 minutes
Original Note:
Today's Communication/Plan
-
see A/P
Assessment / Plan
Assessment / Plan
A/P:
# GIB/Rectal Bleeding, likely recurrent diverticular hemorrhage
# Acute Blood Loss Anemia
Presentation with painless hematochezia
s/p 2 units PRBC transfusion this admission
Scope per GI: Diverticulosis in the entire examined colon. A single non-bleeding colonic angioectasia. Treated with argon plasma coagulation (APC). Two 2 mm polyps at the hepatic flexure and at the ileocecal valve, removed with a jumbo cold forceps.
Resected and retrieved. Internal hemorrhoids. Suspect diverticular bleeding that has resolved.
Advanced diet to regular, informed pt to avoid constipation
Repeat C-Scope outpatient
# Essential hypertension
Hold lisinopril with acute bleeding
# Hx NSVT
Monitor on telemetry
DVT proph: SCDs due to recent bleed
Code Status: Full Code
Anticipated Discharge: Today
Subjective/Interval History
-
Date of Service: December 30, 2023
Objective Data
-
Labs:
Laboratory Results
12/30/23
05:15
WBC 8.3
Hgb 8.5 L D
Hct 24.7 L
Plt Count 205
Sodium 135
Potassium 3.8
Chloride 106
Carbon Dioxide 27
BUN 15
Creatinine 0.9
Glucose 92
Calcium 8.0 L
Vital Signs:
Vital Signs
Temp Pulse Resp BP Pulse Ox
36.5 C 58 16 157/80 97
12/30/23 07:00 12/30/23 07:00 12/30/23 07:00 12/30/23 07:00 12/30/23 08:50
I&O
12/29/23 12/30/23 12/31/23
06:59 06:59 06:59
Intake Total 570 / 570 2049
Output Total 200 / 200
Balance 370 / 370 2049
Review of Systems
-
All other systems: Reviewed and negative
Physical Exam
-
General: Well Developed, Well Nourished, No Apparent Distress, Comfortable and Conversant
HEENT: Normocephalic, Atraumatic, Nose Appears Normal and Ears Appear Normal
Respiratory: Clear to Auscultation and Non Labored Respirations; Negative Accessory Resp Muscle Use
Cardiac: Regular Rhythm and S1/S2
GI: Soft, Nontender and Nondistended
Skin: Warm and Dry; Negative Rash or Ulcers
Neuro: Awake, Alert, Oriented and AO x 3
Psych: Calm and Intact Judgement/Insight
Data Reviewed
-
Labs: Labs Reviewed by me
[2023-12-30 11:00] VITALS: BP 162/83
--- NOTE | 2023-12-30 11:34 | CM ---
Patient seen at bedside. IMM completed and placed on chart. Patient indicated that he did not need any supports at discharge and was for coming to transport him for discharge home. CM will continue to follow for discharge planning needs.
Plan; home with no needs.
--- NOTE | 2023-12-30 12:56 | W.DCSUMMARY ---
Discharge Summary
Discharge Data
Date of Admission: 12/24/23
Date of Discharge: 12/30/23
-
Pending Results: No
Hospital Course
Principal Diagnosis:
Acute blood loss anemia due to gastrointestinal bleeding from diverticular hemorrhage.
Chronic Diagnoses:�
Essential hypertension
Consultations:�
Gastroenterology
Procedures:�
Colonoscopy 12/28/2023: Diverticulosis in the entire examined colon. A single non-bleeding colonic angioectasia. Treated with argon plasma coagulation (APC). Two 2 mm polyps at the hepatic flexure and at the ileocecal valve, removed with a jumbo cold
forceps. Resected and retrieved. Internal hemorrhoids. Suspect diverticular bleeding that has resolved.
Clinical course:�
This is a 78-year-old male with past medical history as stated above presented with bright red blood per rectum.
Problem 1:
GIB/Rectal Bleeding, likely due to recurrent diverticular hemorrhage.
This was associated with acute blood Loss anemia.
He received 2 unit PRBC transfusion this admission. His hemoglobin on the day of discharge was at 8.5. He can check repeat hemoglobin (CBC) in 1 week with result to his PCP
The patient underwent colonoscopy on 12/28/2023: which noted diverticulosis in the entire colon. A single non-bleeding colonic angioectasia- treated with argon plasma coagulation. Two 2 mm polyps at the hepatic flexure and at the ileocecal valve,
removed with a jumbo cold forceps, resected and retrieved. Internal hemorrhoids. Suspect diverticular bleeding that has resolved.
He can follow-up with GI outpatient for repeat colonoscopy.
As for the rest of his medical problems, they were stable during his hospital stay.
Discharge Plan
-
Patient Disposition: Home (Routine Discharge)
Discharge Diagnosis/Procedures: Acute blood loss anemia due to diverticular gastrointestinal bleed
Diet: Regular
Activity: As tolerated
Driving Restrictions: As prior to admission
Blood Work: CBC in 1 week, result to PCP
Activity Restrictions/Additional Instructions:
Follow up with GI for repeat C scope
Referrals:
Kayode Jean MD [Family Provider] - in less than 1 week
Prescriptions:
Continued
lisinopril 10 MG tablet
10 mg PO DAILY
zinc 50 MG tablet
50 mg PO DAILY
cholecalciferol (vitamin D3) 50 mcg (2,000 unit) Tablet
50 mcg PO DAILY
Discharge Orders:
Discharge Patient (As Directed); Ordered 12/30/23
Ordered By: Nenita Hedrick
Discharge Date and Time
Discharge Date/Time: 12/30/23 13:05
== END 2023-12-30 13:05 | disposition home or self-care (01) | DRG 378 ==
LOC: 3 WEST ACU 23:48
PROVIDERS: Emergency Medicine; Internal Medicine; Internal Medicine Gastroenterology; Physician Assistant Medical; ADMITTING PHYSICIAN Student in an Organized Health Care Education/Training Program; ATTENDING PHYSICIAN Internal Medicine; CONSULT PHYSICIAN Internal Medicine Gastroenterology; EMERGENCY PHYSICIAN Emergency Medicine; FAMILY PHYSICIAN Family Medicine
PROC: 30233N1 Transfusion of Nonautologous Red Blood Cells into Peripheral Vein, Percutaneous Approach (ICD-10-PCS; 2023-12-26)
PROC: 0DBL8ZX Excision of Transverse Colon, Via Natural or Artificial Opening Endoscopic, Diagnostic (ICD-10-PCS; 2023-12-28)
PROC: 0D5E8ZZ Destruction of Large Intestine, Via Natural or Artificial Opening Endoscopic (ICD-10-PCS; 2023-12-28)
DX: K57.31 Diverticulosis of large intestine without perforation or abscess with bleeding (principal); D62 Acute posthemorrhagic anemia; I47.20 Ventricular tachycardia, unspecified; Z68.1 Body mass index [BMI] 19.9 or less, adult; I10 Essential (primary) hypertension; E03.9 Hypothyroidism, unspecified; K55.20 Angiodysplasia of colon without hemorrhage; D12.0 Benign neoplasm of cecum; D12.3 Benign neoplasm of transverse colon; R63.6 Underweight
CPT/HCPCS: 88305; 74174; 80048; 80053; 83735; 85014; 85018; 85025; 85027; 85610; 85730; 86850; 86900; 86901; 86920; 96374; 96375; 97162; 99291; P9016; Q9967